=== PATIENT | female | born 1980 | race Caucasian/White ===

== ENCOUNTER 2020-05-27 14:04 | Outpatient (CLI) | payer OTHER, SELFPAY ==
--- NOTE | ~2020-05-27 | MMUS_ITS ---
EXAMINATION: MM diagnostic joe BI w kecia, US breast RT limited HISTORY: Palpable right axillary abnormality TECHNIQUE: Additional 3-D tomosynthesis images of the breasts were performed and synthetic 2-D images were generated. CAD analysis was submitted and interpreted. High resolution Limited right breast ult rasound was performed. COMPARISON: Comparison to multiple prior studies sequentially, with oldest reviewed study dated 08/29. BREAST PARENCHYMAL COMPOSITION: Breast composed of scattered areas of fibroglandular density FINDINGS: MAMMOGRAPHIC FINDINGS: There are no suspicious masses, calcifications or architectural distortion to suggest malignancy. ULTRASOUND: Limited right axillary ultrasound: In the area of palpable concern there is a 6 mm lymph node. No oth er discrete mass identified. IMPRESSION: 1. No evidence for malignancy in either breast. Benign lymph node corresponds to the area of palpable concern in the right axilla. 2. Routine yearly screening mammogram and regular clinical breast examination are recommended. BI-RADS Category 2: Benign finding(s). Reviewed, dictated and finalized at location A. ULAR CLERK IMPRESSION: 1. No evidence for malignancy in either breast. Benign lymph node corresponds t o the area of palpable concern in the right axilla. 2. Routine yearly screening mammogram and regular clinical breast examination a re recommended. BI-RADS Category 2: Benign finding(s).
== END 2020-05-27 14:05 | disposition home or self-care (01) ==
LOC: ANHIMG 14:06
PROVIDERS: PCP Family Medicine; Visit Provider Advanced Practice Midwife
DX: N63.0 Unspecified lump in unspecified breast (principal)
CPT/HCPCS: 76642; 77062; 77066; G0279

== ENCOUNTER → 2022-05-13 09:21 | Outpatient (CLI) | payer OTHER, SELFPAY ==
--- NOTE | ~2022-05-13 | XR_ITS ---
EXAM: XR knee LT 3V DATE: 05/13/2022 09:40 HISTORY: M25.562 - Pain in left knee . COMPARISON: None available. FINDINGS: Normal mineralization. No fracture or dislocation. No lytic or blastic lesion. Joint space s are maintained. No erosion or periosteal change. Soft tissues within normal limits. IMPRESSION: No acute osseous finding in the left knee. Reviewed, dictated and finalized at location K. CURER
== END ==
PROVIDERS: PCP Family Medicine; Visit Provider Family Medicine
DX: M25.562 Pain in left knee (principal)
CPT/HCPCS: 73562

== ENCOUNTER → 2022-06-03 15:06 | Outpatient (CLI) | payer OTHER, SELFPAY ==
--- NOTE | ~2022-06-03 | MM_ITS ---
EXAMINATION: MM screening joe BI w kecia HISTORY: Screening TECHNIQUE: Craniocaudal and mediolateral oblique 3-D tomosynthesis images were obtained and synthetic 2-D images were generated. CAD analysis was submitted and interpreted. COMPARISON: Comparison to multiple prior studies sequentially, with oldest reviewed study dated 10/04. BREAST PARENCHYMAL COMPOSITION: There are scattered areas of fibroglandular density. FINDINGS: There is no evidence of suspicious mass, calcification, or architectural distortion to sugg est malignancy in either breast. There has been no suspicious interval change. IMPRESSION: 1. No mammographic evidence of malignancy. 2. Recommend routine screening mammography in one year. BI-RADS Category 1: Negative Reviewed, dictated and finalized at location B. US DEAN
== END ==
PROVIDERS: PCP Family Medicine; Visit Provider Nurse Practitioner Obstetrics & Gynecology
DX: Z12.31 Encounter for screening mammogram for malignant neoplasm of breast (principal)
CPT/HCPCS: 77063; 77067

== ENCOUNTER 2022-08-06 09:07 | Outpatient (CLI) | payer OTHER, SELFPAY ==
--- NOTE | 2022-08-22 23:01 | WPDHOMESLEEP ---
Sleep Study - Home Unattended Date of Study: 08/06/22 Ordering Provider: Dimas Kaur PA-C Interpreting Provider: Rosanna Calle, DO Home Sleep Study Type: Watch PAT Height: 1.78 m Weight: 117.934 kg Body Mass Index: 37.3 Neck Circumference (inches): 15 [place]: 16 Reason for Sleep Study Unrefreshing sleep, snoring Sleep History The patient is a 42-year-old female with hyperlipidemia and seasonal allergies that had a sleep study ordered for evaluation of sleep apnea. The patient occasionally awakens from sleep short of breath. She denies awakening at night with heartburn, belching or cough. She constantly snores loudly enough that others complain. She frequently has trouble sleeping when she has a cold. She frequently wakes up gasping for air throughout the night. She frequently has breathing problems at night observed by herself or others. She denies sweating excessively at night. She denies having heart palpitations or irregular heartbeats during the night. She occasionally falls asleep during the day and occasionally falls asleep while driving. She denies sleep paralysis, cataplexy and hypnagogic / hypnopompic hallucinations. He rarely has trouble at school or work due to sleepiness. She denies feeling afraid of going to sleep. She denies having nightmares. She rarely remembers her dreams. She occasionally has thoughts racing through her mind. She rarely feels sad or depressed. She frequently has anxiety. She denies having muscular tension. She rarely notices parts of her body jerk. She occasionally kicks during the night. She denies having crawling and aching feelings in her legs. She rarely experiences leg pain during the night. She denies grinding her teeth during sleep and denies awakening with morning jaw pain. She denies being bothered by pain during the day and denies being awakened by pain during the night. She rarely wakes up feeling stiff in the morning. She rarely wakes up with sore or achy muscles. She rarely wakes up with pain in the neck, spine or other joints. The patient goes to bed at 8:30 p.m. on weekdays and at 9:30 p.m. on the weekends. It takes her 20 minutes to fall asleep. He wakes up 2-3 times throughout the night for unknown reasons. When she awakens, she will check her phone or stare at something. It takes her 1-2 hours to fall back asleep. She wakes up at 5:00 a.m. on weekdays and between 6-7 a.m. on the weekends. she typically gets 9 hours of sleep per night. She will stay in bed for 30 minutes after waking up in the morning. She currently lives with her and 3 children. She does not consume any caffeinated beverages within 2 hours of bedtime. She does not engage in physical exercise before bedtime. She will read and watch television before falling asleep. He will take naps in the afternoon or the evening but they are not refreshing. She drinks 2-3 cups of caffeinated beverage per day. She denies tobacco, alcohol and recreational drug use. [facility] Past Medical History Medical History Grief reaction with prolonged bereavement Surgical History Surgical History S/P laparoscopic sleeve gastrectomy Family History Family History Father Family history of elevated blood lipids Mother Patient's mother is , Onset Age: 58 Other Diabetes mellitus Family history of arthritis Family history of hypercholesterolemia Family history of obesity Family history of skin conditions Hypertension Social History Social History Smoking status: Never smoker Alcohol intake: current Lack of Transportation: No Lack of Food: Never True Current Housing: I Have Housing Concerned About Future Housing: No Difficulty Paying
[2022-08-22 23:11] VITALS: BMI 37.3
== END 2022-08-07 09:13 | disposition home or self-care (01) ==
LOC: ANHCSM 09:09
PROVIDERS: PCP Family Medicine; Visit Provider Physician Assistant
DX: G47.33 Obstructive sleep apnea (adult) (pediatric) (principal); G47.30 Sleep apnea, unspecified
CPT/HCPCS: 95800

== ENCOUNTER 2022-08-28 08:22 | Outpatient (CLI) | payer OTHER, SELFPAY ==
--- NOTE | 2022-08-28 08:26 | EST_ITS ---
Patient Info Name: Hailey Marin Age: 42 years : 1980 Gender: Female Ht: 70 in Wt: 260 lbs BSA: 2.46 m2 HR: 86 bpm BP: 122 / 67 mmHg Heart Rhythm: Sinus Rhythm Exam Date: 08/28/2022 8:36 AM Exam Location: [facility] Stress Patient Status: Outpatient Admit Date: 08/28/2022 Staff Ordering Physician: Harrison Lechuga DO Attending Provider: Harrison Lechuga DO Exercise Technologist: Isabella Suarez CT Exercise Physician: Harrison Lechuga DO Exam Type: CA stress test treadmill Study Info Indications R06.09 - Other forms of dyspnea A treadmill exercise stress test was performed. Summary 1. 1. Negative Vincent exercise stress test for ischemic ST changes by ECG criteria. 2. 2. Reduced functional capacity, achieving 8 METs of workload. 3. 3. Appropriate HR response to exercise. 4. 4. Appropriate HR recovery at 1 minute post exercise. 5. 5. No imaging with stress testing. 6. 6. Patient informed of the above results. Protocol: Vincent Stress ECG Details Stage: REST Duration (min): 3 min : 57 sec Speed (mph): 0.0 Grade (%): 0 HR (bpm): 87 SBP (mmHg): 122 DBP (mmHg): 67 METS: --- Stage: REST Duration (min): 4 min : 26 sec Speed (mph): 0.0 Grade (%): 0 HR (bpm): 92 SBP (mmHg): 122 DBP (mmHg): 67 METS: --- Stage: STAGE 1 Duration (min): 1 min : 0 sec Speed (mph): 1.7 Grade (%): 10 HR (bpm): 121 SBP (mmHg): 122 DBP (mmHg): 67 METS: --- Stage: STAGE 1 Duration (min): 2 min : 0 sec Speed (mph): 1.7 Grade (%): 10 HR (bpm): 132 SBP (mmHg): 122 DBP (mmHg): 67 METS: --- Stage: STAGE 1 Duration (min): 3 min : 0 sec Speed (mph): 1.7 Grade (%): 10 HR (bpm): 129 SBP (mmHg): 122 DBP (mmHg): 67 METS: --- Stage: STAGE 2 Duration (min): 1 min : 0 sec Speed (mph): 2.5 Grade (%): 12 HR (bpm): 140 SBP (mmHg): 163 DBP (mmHg): 96 METS: --- Stage: STAGE 2 Duration (min): 2 min : 0 sec Speed (mph): 2.5 Grade (%): 12 HR (bpm): 147 SBP (mmHg): 163 DBP (mmHg): 96 METS: --- Stage: STAGE 2 Duration (min): 3 min : 0 sec Speed (mph): 2.5 Grade (%): 12 HR (bpm): 152 SBP (mmHg): 163 DBP (mmHg): 96 METS: --- Stage: STAGE 3 Duration (min): 0 min : 41 sec Speed (mph): 3.4 Grade (%): 14 HR (bpm): 162 SBP (mmHg): 148 DBP (mmHg): 51 METS: --- Stage: RECOVERY Duration (min): 0 min : 18 sec Speed (mph): 0.0 Grade (%): 0 HR (bpm): 159 SBP (mmHg): 148 DBP (mmHg): 51 METS: --- Stage: RECOVERY Duration (min): 1 min : 18 sec Speed (mph): 0.0 Grade (%): 0 HR (bpm): 127 SBP (mmHg): 148 DBP (mmHg): 51 METS: --- Stage: RECOVERY Duration (min): 2 min : 6 sec Speed (mph): 0.0 Grade (%): 0 HR (bpm): 117 SBP (mmHg): 152 DBP (mmHg): 57 METS: --- Rest HR: 92 bpm Peak
--- NOTE | 2022-08-28 08:27 | ECHO_ITS ---
Patient Info Name: Hailey Marin Age: 42 years : 1980 Gender: Female Ht: 70 in Wt: 260 lbs BSA: 2.46 m2 HR: 89 bpm BP: 100 / 87 mmHg Technical Quality: Fair Exam Date: 08/28/2022 9:04 AM Exam Location: [facility] Patient Status: Outpatient Admit Date: 08/28/2022 Staff Ordering Physician: Harrison Lechuga DO Recreation Instructor: Julieta Weathers RDCS Attending Provider: Harrison Lechuga DO Referring Physician: Ankush SMITH; Exam Type: CA echo doppler color flow Study Info Indications R06.09 - Other forms of dyspnea Complete two-dimensional, color flow and Doppler transthoracic echocardiogram is performed. Summary 1. Complete two-dimensional, color flow and Doppler transthoracic echocardiogram is performed. 2. Left ventricular chamber dimension is normal. 3. Left ventricular systolic function is normal, estimated at 65-70%. 4. The left ventricular diastolic function is grade II diastolic dysfunction. 5. E/e' 9 is minimally elevated. 6. Global longitudinal strain is abnormal at -15.1%. Left Ventricle E/e' 9 is minimally elevated. Global longitudinal strain is abnormal at -15.1%. Left ventricular chamber dimension is normal. Left ventricular systolic function is normal, estimated at 65-70%. The left ventricular diastolic function is grade II diastolic dysfunction. Right Ventricle Right ventricular systolic function is normal and with normal TAPSE 1.7 cm. Right ventricular chamber dimension is normal. Left Atria Left atrial chamber dimension is normal. Right Atria Right atrial chamber dimension is normal. Aortic Valve The aortic valve is trileaflet. There is no aortic valve stenosis. There is no aortic valve regurgitation. Pulmonic Valve There is no pulmonic regurgitation. Mitral Valve There is no mitral valve stenosis. There is no mitral valve regurgitation. Tricuspid Valve There is no tricuspid valve regurgitation. Pericardium/Pleural There is no pericardial effusion. Inferior Vena Cava Normal inferior vena cava with >50% collapse upon inspiration consistent with normal right atrial pressure, 5 mmHg. Aorta The aortic root size at the sinus of Valsalva is normal. Left Ventricular Outflow Tract Name Value Normal LVOT 2D LVOT Diameter 1.9 cm LVOT Doppler LVOT Peak Gradient 5 mmHg LVOT Mean Gradient 3 mmHg LVOT VTI 22 cm LVOT VTI/AV VTI Ratio 0.8 LVOT Stroke Volume 60 ml LVOT CO 5.1 l/min LVOT CI 2.1 l/min/m2 Pulmonic Valve Name Value Normal RVOT Doppler RVOT Peak Gradient 3 mmHg PV Doppler PV Peak
== END 2022-08-28 08:23 | disposition home or self-care (01) ==
PROVIDERS: PCP Family Medicine; Visit Provider Internal Medicine Cardiovascular Disease
DX: R06.09 Other forms of dyspnea (principal)
CPT/HCPCS: 93017; 93306

== ENCOUNTER → 2023-07-05 15:13 | Outpatient (CLI) | payer OTHER, SELFPAY ==
--- NOTE | ~2023-07-05 | MM_ITS ---
EXAMINATION: MM screening joe BI w kecia HISTORY: Screening TECHNIQUE: Craniocaudal and mediolateral oblique 3-D tomosynthesis images were obtained and synthetic 2-D images were generated. CAD analysis was submitted and interpreted. COMPARISON: Comparison to multiple prior studies sequentially, with oldest reviewed study dated 03/22. BREAST PARENCHYMAL COMPOSITION: Breast composed of scattered areas of fibroglandular density FINDINGS: There is a small focal asymmetry centrally in the left breast posterior aspect on the CC vi ew. The right breast is stable without evidence for malignancy. IMPRESSION: 1. Focal asymmetry posterior central aspect of the left breast on CC view. 2. Additional mammographic views and possible breast ultrasound are recommended. BI-RADS Category 0: Incomplete: Needs additional imaging evaluation. Reviewed, dictated and finalized at location A. COVER INSPECTOR IMPRESSION: 1. Focal asymmetry posterior central aspect of the left breast on CC view. 2. Additional mammographic views and possible breast ultrasound are recommended . BI-RADS Category 0: Incomplete: Needs additional imaging evaluation.
== END ==
PROVIDERS: PCP Nurse Practitioner Obstetrics & Gynecology; Visit Provider Nurse Practitioner Obstetrics & Gynecology
DX: Z12.31 Encounter for screening mammogram for malignant neoplasm of breast (principal); R92.8 Other abnormal and inconclusive findings on diagnostic imaging of breast
CPT/HCPCS: 77063; 77067

== ENCOUNTER 2023-07-06 09:16 | Outpatient (CLI) | payer OTHER, SELFPAY ==
--- NOTE | 2023-07-27 18:43 | WPDHOMESLEEP ---
Sleep Study - Home Unattended Date of Study: 07/06/23 Ordering Provider: Rosanna Calle DO Interpreting Provider: Jessi Roberson MD Home Sleep Study Type: Watch PAT Height: 1.78 m Weight: 90.718 kg Body Mass Index: 28.7 Neck Circumference (inches): 14 [place]: 11 Reason for Sleep Study Obstructive sleep apnea on PAP therapy, has lost wake, retesting * 08/06/2022- home sleep test with WatchPat, AHI 34.4, marci 89%. She has been compliant with treatment, wants to stop using PAP Sleep History Hailey Pichardo was diagnosed with severe obstructive sleep apnea on 08/06/2022 with a home sleep test showing an apnea-hypopnea index of 34.4 with desaturation 89%. Her BMI at the time was 37.3. She was prescribed auto PAP 5-15 cm and has been compliant with use. She returns at this time for re-evaluation as she does not like to use PAP therapy and wants to get off of it. The following information from her sleep questionnaire in 2022 is included here. She has hyperlipidemia and seasonal allergies. She occasionally awakens from sleep feeling short of breath. She denies awakening at night with heartburn, belching or cough. She constantly snores loudly enough that others complain. She frequently has trouble sleeping when she has a cold. She frequently wakes up gasping for air throughout the night. She frequently has breathing problems at night observed by herself or others. She denies sweating excessively at night. She denies having heart palpitations or irregular heartbeats during the night. She occasionally falls asleep during the day and occasionally falls asleep while driving. She denies sleep paralysis, cataplexy and hypnagogic / hypnopompic hallucinations. She rarely has trouble at work due to sleepiness. She denies feeling afraid of going to sleep. She denies having nightmares. She rarely remembers her dreams. She occasionally has thoughts racing through her mind. She rarely feels sad or depressed. She frequently has anxiety. She denies having muscular tension. She rarely notices parts of her body jerk. She occasionally kicks during the night. She denies having crawling and aching feelings in her legs. She rarely experiences leg pain during the night. She denies grinding her teeth during sleep and denies awakening with morning jaw pain. She denies being bothered by pain during the day and denies being awakened by pain during the night. She rarely wakes up feeling stiff in the morning. She rarely wakes up with sore or achy muscles. She rarely wakes up with pain in the neck, spine or other joints. The patient goes to bed at 8:30 p.m. on weekdays and at 9:30 p.m. on the weekends. It takes her 20 minutes to fall asleep. She wakes up 2-3 times throughout the night for unknown reasons. When she awakens, she will check her phone or stare at something. It takes her 1-2 hours to fall back asleep. She wakes up at 5:00 a.m. on weekdays and between 6-7 a.m. on the weekends. she typically gets 9 hours of sleep per night. She will stay in bed for 30 minutes after waking up in the morning. She currently lives with her and 3 children. She does not consume any caffeinated beverages within 2 hours of bedtime. She does not engage in physical exercise before bedtime. She will read and watch television before falling asleep. He will take naps in the afternoon or the evening but they are not refreshing. She drinks 2-3 cups of caffeinated beverage per day. She denies tobacco, alcohol and recreational drug use. 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 autoPAP 5-15 cm H2O, CPAP mask/filters/tubing and humidifier chamber. Synovial cyst of ankle and foot region Surgical History Surgical History (Review
[2023-07-27 18:50] VITALS: BMI 28.7
== END 2023-07-07 07:30 | disposition home or self-care (01) ==
LOC: ANHCSM 09:17
PROVIDERS: PCP Nurse Practitioner Obstetrics & Gynecology; Visit Provider Family Medicine
DX: G47.33 Obstructive sleep apnea (adult) (pediatric) (principal)
CPT/HCPCS: 95800

== ENCOUNTER → 2023-07-30 08:49 | Outpatient (CLI) | payer OTHER, SELFPAY ==
--- NOTE | ~2023-07-30 | MM_ITS ---
EXAMINATION: MM diagnostic joe LT w kecia HISTORY: Focal posterior central asymmetric density on 07/05/2023 left CC view TECHNIQUE: Additional 3-D tomosynthesis images of the left breast were performed and synthetic 2-D im ages were generated. Rolled medial and rolled lateral craniocaudal views of left breast. CAD analysis was submitted and interpreted. COMPARISON: 07/05/2023,06/03/2022, 05/27/2020bilateral screening mammogram examinations FINDINGS: The small density in the posterior central left breast appears relatively stable since 05/27 and is not apparent on the rolled medial and rolled craniocaudal views,, suggesting this may be overlapping fibroglandular stroma (summation shadow). IMPRESSION: 1. No mammographic evidence of malignancy 2. Routine annual mammographic screening is recommended BI-RADS Category 1: Negative Reviewed, dictated and finalized at location A. NCIAL REPORTING DIRECTOR
== END ==
PROVIDERS: PCP Family Medicine; Visit Provider Nurse Practitioner Obstetrics & Gynecology
DX: R92.8 Other abnormal and inconclusive findings on diagnostic imaging of breast (principal)
CPT/HCPCS: 77061; 77065; G0279

== ENCOUNTER 2024-07-12 13:40 | Outpatient (CLI) | payer OTHER, SELFPAY ==
--- NOTE | ~2024-07-12 | MR_ITS ---
EXAMINATION: MR foot LT wo con DATE: 07/12/2024 14:21 INDICATION: Left foot and heel pain. TECHNIQUE: Magnetic resonance imaging (MRI) of the left foot was performed without intravenous contra st. Sequences included sagittal T1-weighted FSE, sagittal fluid sensitive FSE STIR, coronal PD-weight ed FS FSE, coronal T1-weighted FSE, axial PD-weighted FS FSE, and axial PD-weighted FSE. COMPARISON: Foot radiographs dated 07/04/2024 FINDINGS: Bone alignment is normal. Normal bone marrow signal throughout. No fracture or pathologic marrow repl acing process. Likely mild osteoarthritis related to subarticular cystlike and edema-like changes at the cuboid underlying its articulation with the anterior calcaneus. Joint spaces are otherwise unrema rkable. No joint effusions. The medial and lateral stabilizing ligaments of the ankle appear normal. The Lisfranc ligament complex as well as the collateral ligament complex at the metatarsophalangeal a nd interphalangeal joints are normal. Visualized portion of the flexor and extensor tendons of the fo ot and ankle are normal. The intrinsic musculature of the foot is unremarkable. IMPRESSION: 1. Likely osteoarthritis related subarticular edema and cystlike changes at the cuboid along its celso culation with the anterior calcaneus. Otherwise unremarkable MRI of the left foot. Reviewed, dictated and finalized at location A. B2B SALES MANAGER IMPRESSION: 1. Likely osteoarthritis related subarticular edema and cystlike changes at the cuboid along its articulation with the anterior calcaneus. Otherwise unremarka ble MRI of the left foot.
== END 2024-07-12 13:41 | disposition home or self-care (01) ==
PROVIDERS: PCP Family Medicine; Visit Provider Orthopaedic Surgery
DX: S93.692A Other sprain of left foot, initial encounter (principal); X58.XXXA Exposure to other specified factors, initial encounter; M19.072 Primary osteoarthritis, left ankle and foot
CPT/HCPCS: 73718

== ENCOUNTER 2024-10-18 15:45 | Outpatient (CLI) | payer OTHER, SELFPAY ==
--- NOTE | ~2024-10-18 | MM_ITS ---
EXAMINATION: MM screening joe BI w kecia HISTORY: Screening TECHNIQUE: Craniocaudal and mediolateral oblique 3-D tomosynthesis images were obtained and synthetic 2-D images were generated. CAD analysis was submitted and interpreted. COMPARISON: Comparison to multiple prior studies sequentially, with oldest reviewed study dated 12/2019. BREAST PARENCHYMAL COMPOSITION: Dense: The breasts are extremely dense, which lowers the sensitivity of mammography. FINDINGS: There is no evidence of suspicious mass, calcification, or architectural distortion to sugg est malignancy in either breast. There has been no suspicious interval change. IMPRESSION: 1. No mammographic evidence of malignancy. 2. Recommend routine screening mammography in one year. BI-RADS Category 1: Negative Reviewed, dictated and finalized at location A.
== END 2024-10-18 15:46 | disposition home or self-care (01) ==
PROVIDERS: PCP Student in an Organized Health Care Education/Training Program; Visit Provider Student in an Organized Health Care Education/Training Program
DX: Z12.31 Encounter for screening mammogram for malignant neoplasm of breast (principal)
CPT/HCPCS: 77063; 77067

== ENCOUNTER 2025-04-13 12:58 | Outpatient (CLI) | payer OTHER, SELFPAY ==
--- OUTSIDE RECORDS SUMMARY | 2025-04-13 13:00 | XMS_ITS | Clinical Summary ---
Author Organization [facility] Address [address] [place] [address] Care Team Providers Care Dry Drug Worker Name Role Phone Cara Stockton MD Primary Care Provider + Allergies No known active allergies Medications atorvastatin (Lipitor) 20 mg tablet Take 20 mg by mouth daily Active norethindrone-et hinyl estradiol-iron (MICROGESTIN FE 1.5/30) 1.5 mg-30 mcg per tablet Take 1 tablet by mouth daily Active fexofenadine-pse udoephedrine (PAULY-D) 60-120 mg per 12 hr tablet Take 1 tablet by mouth 2 (two) times a day Active Active Problems Problem Noted Date Diagnosed Date Cephalalgia 07/17/2014 Migraine with aura 07/17/2014 Immunizations Immunization Administration Dates Next Due Influenza, Trivalent, Preservative Free, Intramu scular 04/16/2014 Surgical History Surgery Date Site/Laterality Comments IA TONSILLECTOMY PRIMARY/SEC ONDARY <AGE 13 Tonsillectomy - (Added by TW Conv) Medical History Medical History Date Comments Hypertension only when pregna nt Family History Medical History Relation Name Comments Diabetes Father Family history of diabetes mellitus - (Added by TW Conv) Cancer Neg Hx Relation Name Status Comments Father Social History Tobacco Use Types Packs/Day Years Used Date Smoking Tobacco: Former Smokeless Tobacco: Never Alcohol Use Standard Drinks/Week Comments Yes 0 (1 standard drink = 0.6 oz pur e alcohol) socially Personal Safety Answer Date Recorded Getting School Help Needed Not on file 09/03 Comments Unknown Sex and Gender Information Value Date Recorded Sex Assigned at Not on file Legal Sex Female 8:20 AM SHOE FOLDER Gender Identity Not on file Sexual Orientation Not on file Obstetrics History Last Filed Vital Signs Vital Sign Reading Time Taken Comments Blood Pressure 137/83 07/09/2020 3:28 PM SHOE FOLDER Pulse 74 07/09/2020 3:28 PM SHOE FOLDER Temperature 36.7 C (98.1 F) 07/09/2020 3:28 PM SHOE FOLDER Respiratory Rate 18 07/09/2020 3:28 PM SHOE FOLDER Oxygen Saturation 97% 07/09/2020 3:28 PM SHOE FOLDER Inhaled Oxygen Concentration - - Weight 118 kg (260 lb 3.2 oz) 07/09/2020 3:28 PM SHOE FOLDER Height 174 cm (5' 8.5) 07/09/2020 3:28 PM SHOE FOLDER Body Mass Index 38.98 07/09/2020 3:28 PM SHOE FOLDER Plan of Treatment Not on file Insurance [facility] CHO[facility] PL[facility] Care Teams Dry Drug Worker Relationship Specialty Start Date End Date Cara Stockton MD PCP - General Family Medicine 06/25/20
--- OUTSIDE RECORDS SUMMARY | 2025-04-13 13:00 | XMS_ITS | Clinical Summary ---
Author Organization [facility] [place] Address [address] [place] [address] Phone Care Team Providers Care Construction Job Cost Estimator Name Role Phone Cara Stockton MD Primary Care Provider Allergies No known active allergies Medications atorvastatin (LIPITOR) 20 mg tablet Take 40 mg by mouth daily. Active cetirizine (ZyrTEC) 10 mg tablet Take 10 mg by mouth daily. Active acetaminophen 325 mg tablet Take 650 mg by mouth every 4 hours as needed for Pain. Active HYDROcodone-acet aminophen (HYCET) 7.5-325 mg/15 mL SolutionIndicati ons:High cholesterol Take 15 mL by mouth every 6 hours as needed for severe pain. Max Daily Amount: 60 mL 300 mL 10/06/2022 12:42 PM CDT 3 Active ondansetron (ZOFRAN ODT) 4 mg Tablet, Rapid Dissolve Take 1 Tablet (4 mg) by mouth every 6 hours as needed for Nausea/Emesis . Dissolve tablet on top of tongue, then swallow with saliva. 28 Tablet 10/06/2022 12:42 PM CDT 3 Active Active Problems Patient Care Coordination No te Formatting of this note migh t be different from the original. Primary Care: Cara Stockton MD Referring Provider: Ciara Acosta MD [address] [place] [address] Problem Noted Date Diagnosed Date Metabolic acidosis, normal anion gap (NAG) 10/06 High cholesterol 08/29/2010 Diffuse cystic mastopathy 05/28/2009 Asthma Immunizations Immunization Administration Dates Next Due Influenza Seasonal Unspecified Formulation PF IM 04/16/2014 Family History Medical History Relation Name Comments Healthy Father Healthy Mother Heart Disease Paternal Grandfather Other Paternal Grandfather diabete s Breast Cancer Paternal Grandmother late 3 0s early 40s Healthy Sister Ovarian Cancer Neg Hx Relation Name Status Comments Father Mother Paternal Grandfather Paternal Grandmother Sister Social History Tobacco Use Types Packs/Day Years Used Date Smoking Tobacco: Never Smokeless Tobacco: Never Alcohol Use Standard Drinks/Week Comments Not Currently 0 (1 standard drink = 0.6 oz pur e alcohol) moderate Feeling Safe Answer Date Recorded Are you in a relationship wi th someone who hurts you emotionally and/or physically? 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 Gender Identity Not on file Sexual Orientation Not on file Occupation Industry Job Start Date Job End Date Not on file Not on file Not on file Not on file Last Filed Vital Signs Vital Sign Reading Time Taken Comments Blood Pressure 143/74 10/06/2022 12:12 PM CDT Pulse 64 10/06/2022 12:12 PM CDT Temperature 36.5 C (97.7 F) 10/06/2022 12:12 PM CDT Respiratory Rate 16 10/06/2022 12:12 PM CDT Oxygen Saturation 100% 10/06/2022 12:12 PM CDT Inhaled Oxygen Concentration - - Weight 126.3 kg (278 lb 8 oz) 10/05/2022 4:48 PM CDT Height 177.8 cm (5' 10) 10/05/2022 4:48 PM CDT Body Mass Index 39.96 10/05/2022 4:48 PM CDT Plan of Treatment Health Maintenance Due Date Last Done Comments DTAP/TDAP/TD VACCINES (1 - Tdap) 2000 HEPATITIS B VACCINES (1 of 3 - 19+ 3-dose series) 2000 HPV/Cotest (21-29) 2002 HPV VACCINES (1 - 3-dose SCD M series) 2008 HPV/Cotest (30-65) 2011 BREAST CANCER SCREENING 2021 04/10/20 14, 10/04/2013, 08/29/2010, Additional history exists INFLUENZA VACCINE (#1) 2025 04/16/2014 CERVICAL CANCER SCREENING 03/05/2025 PAP SMEAR 03/05/2025 03/05/2022 Medical Devices Implanted Type Area Circulation Sales Representative Device Identifier Shelf Expiration Date Model / Serial / Lot Seamguard Endogia 60 Blk [id number] - [id number] Implanted:Qt y: 1 on 10/05/2022 by Ephraim Padron MD at [facility] Biological N/A: Stomach [employer] [id number] 04/05/2024 12BSGTRI 60B / / [id number] Seamguard Endogia 60 Blk [id number] - [id number] Implanted:Qt y: 1 on 10/05/2022 by Ephraim Padron MD at [facility] Biological N/A: Stomach [employer] [id number] 04/05/2024 12BSGTRI 60B / / [id number] Seamguard Endogia 60 Prpl [id number] - [id number] Implanted:Qt y: 1 on 10/05/2022 by Ephraim Padron MD at [facility] Biological N/A: Stomach [employer] [id number] 01/18/2025 12BSGTRI 60P / / [id number] Seamguard Endogia 60 Prpl [id number] - [id number] Implanted:Qt y: 1 on 10/05/2022 by Ephraim Padron MD at [facility] N/A: Stomach [employer] [id number] 01/18/2025 12BSGTRI 60P / / [id number] Procedures Procedure Name Priority Date/Time Associated Diagnosis Comments MAMMO 3D ADAM DIAGNOSTIC BILAT W OR WO CAD Routine 04/10/2014 1:09 PM CDT Diffuse cystic mastopathy, unspecified laterality from Last 3 Months or Most Recently Relevant to Health Maintenance Results * MAMMO DIG DIAG BILAT W 3D ADAM (04/10/2014 1:09 PM CDT) Anatomical Region Laterality Modality Breast Bilateral Mammography 04/10/2014 1:08 PM CDT Narrative 04/13/2014 9:06 AM CDT BILATERAL DIAGNOSTIC FULL FIELD DIGITAL MAMMOGRAPHY WITH CAD WITH 3D TOMOSYNTHESIS AND BILATERAL BREAST ULTRASOUND DATE: 04/10/14 HISTORY: Tenderness TECHNIQUE: Diagnostic mammograms of both breasts were performed using full field digital mammography. Low Dose full field Digital Breast tomosynthesis examination was performed with 2D and 3D acquisitions. Examination is read in conjunction with computer aided detection. Comparison is made with prior studies dated September 2013, October 2008August 2010 BREAST COMPOSITION: Scattered fibroglandular densities. FINDINGS: No dominant masses, suspicious calcifications, parenchymal asymmetry or areas of architectural distortion are identified in either breast. Since the prior study, there has been no significant change. The computer aided detection system was utilized. A bilateral breast ultrasound was performed. In the upper-outer quadrant of the right breast no solid or cystic lesions are identified. Scanning throughout the right breast reveals no solid or cystic lesions. Attention to the upper-outer quadrant of the left breast was performed. This reveals no solid or cystic lesions. Scanning of the entire left breast reveals no solid or cystic lesions. Overall assessment: BI-RADS category 1. Negative. Recommendation: Annual mammography is recommended. Dictated from [facility] Procedure Note Bre Hurt MD - 04/13/2014 BILATERAL DIAGNOSTIC FULL FIELD DIGITAL MAMMOGRAPHY WITH CAD WITH 3D TOMOSYNTHESIS AND BILATERAL BREAST ULTRASOUND DATE: 04/10/14 HISTORY: Tenderness TECHNIQUE: Diagnostic mammograms of both breasts were performed using full field digital mammography. Low Dose full field Digital Breast tomosynthesis examination was performed with 2D and 3D acquisitions. Examination is read in conjunction with computer aided detection. Comparison is made with prior studies dated September 2013, October 2008August 2010 BREAST COMPOSITION: Scattered fibroglandular densities. FINDINGS: No dominant masses, suspicious calcifications, parenchymal asymmetry or areas of architectural distortion are identified in either breast. Since the prior study, there has been no significant change. The computer aided detection system was utilized. A bilateral breast ultrasound was performed. In the upper-outer quadrant of the right breast no solid or cystic lesions are identified. Scanning throughout the right breast reveals no solid or cystic lesions. Attention to the upper-outer quadrant of the left breast was performed. This reveals no solid or cystic lesions. Scanning of the entire left breast reveals no solid or cystic lesions. Overall assessment: BI-RADS category 1. Negative. Recommendation: Annual mammography is recommended. [facility]ict[facility] from [facility] Provider Result Type Result Stat Mary Conrad MD MAMMO ORDERABLES Final Result from Last 3 Months or Most Recently Relevant to Health Maintenance Insurance [employer] [id number] [employer] Advance Directives For more information, please contact: [phone] * Full Code (Latest Code Status on File) Date Activated Date Inactivated Comments 10/05/2022 11:14 AM 10/06/2022 4:21 PM * Full Code Date Activated Date Inactivated Comments 10/05/2022 10:54 AM 10/05/2022 11:14 AM Care Teams Construction Job Cost Estimator Relationship Specialty Start Date End Date Cara Stockton MD PCP - General Family Practice 04/10/14
--- OUTSIDE RECORDS SUMMARY | 2025-04-13 13:00 | XMS_ITS | Clinical Summary ---
Author Organization [facility] Address [address] [place] [id number] Care Team Providers Care Preventive Medicine Physician Name Role Phone Unavailable Primary Care Provider Unavailabl e Social History Tobacco Use Types Packs/Day Years Used Date Smoking Tobacco: Never Assessed Comments Unknown Sex and Gender Information Value Date Recorded Sex Assigned at Not on file Legal Sex Female 7:53 PM CDT Gender Identity Not on file Sexual Orientation Not on file Plan of Treatment Health Maintenance Due Date Last Done Comments Cervical Cancer Screening Pa p Smear (Age 30 to 64) Every 3 Years 1981 Annual Physical 1984 Hepatitis C 1999 DTaP, Tdap and Td Vaccines ( 1 - Tdap) 2000 Hepatitis B Vaccines (1 of 3 - 19+ 3-dose series) 2000 HPV Vaccines (1 - 3-dose SCD M series) 2008 Cervical Cancer Screening Pa p with HPV Testing (Age 30 to 64) Every 5 Years 2011 Cervical Cancer Screening with HPV 2011 Mammogram Screening 2021 COVID-19 Vaccine (2024-2 6 season) 2025 Influenza Adult (#1) 2025 Hepatitis A Vaccines Aged Out No long er eligible based on patient's age to complete this topic Meningococcal B Vaccine Aged Out No l onger eligible based on patient's age to complete this topic Meningococcal Vaccine Aged Out No barbara ady eligible based on patient's age to complete this topic Pneumococcal Vaccine: Pediat rics (0 to 5 Years) and At-Risk Patients (6 to 49 Years) Aged Out No longer eligible b ased on patient's age to complete this topic RSV Immunizations Under 20 Months Aged Out No longer eligible based on patient's age to complete this topic
[2025-04-13 18:46] LABS: Thyroid Stimulating Hormone 1.410 uIU/mL (0.465-4.680)
== END 2025-04-13 12:59 | disposition home or self-care (01) ==
LOC: ANHGOSHLAB 12:59
PROVIDERS: PCP Family Medicine; Visit Provider Family Medicine
DX: R00.2 Palpitations (principal); Z98.84 Bariatric surgery status
CPT/HCPCS: 36415; 82306; 84443

== ENCOUNTER 2025-05-15 17:38 | Outpatient (CLI) | payer OTHER, SELFPAY ==
--- OUTSIDE RECORDS SUMMARY | 2025-05-15 17:41 | XMS_ITS | Clinical Summary ---
Author Organization [facility] Address [address] [place] [address] Care Team Providers Care Client Service Manager Name Role Phone Cara Stockton MD Primary [...] 04/16/2014 Surgical History Surgery Date Site/Laterality Comments [place] TONSILLECTOMY PRIMARY/SEC ONDARY <AGE 12 Tonsillectomy - [...] on file Legal Sex Female 8:20 AM MANAGER CARDIOLOGY Gender Identity Not on file Sexual Orientation Not on file Last Filed Vital Signs Vital Sign Reading Time Taken Comments Blood Pressure 137/83 07/09/2020 3:28 PM MANAGER CARDIOLOGY Pulse 74 07/09/2020 3:28 PM MANAGER CARDIOLOGY Temperature 36.7 C (98.1 F) 07/09/2020 3:28 PM MANAGER CARDIOLOGY Respiratory Rate 18 07/09/2020 3:28 PM MANAGER CARDIOLOGY Oxygen Saturation 97% 07/09/2020 3:28 PM MANAGER CARDIOLOGY Inhaled Oxygen Concentration - - Weight 118 kg (260 lb 3.2 oz) 07/09/2020 3:28 PM MANAGER CARDIOLOGY Height 174 cm (5' 8.5) 07/09/2020 3:28 PM MANAGER CARDIOLOGY Body Mass Index 38.98 07/09/2020 3:28 PM MANAGER CARDIOLOGY Plan of Treatment Not on file Insurance [facility] H[facility]/PPO Address: [address] [address] Care Teams Client Service Manager Relationship Specialty Start Date End Date Cara Stockton MD PCP - General Family Medicine 06/25/20
--- OUTSIDE RECORDS SUMMARY | 2025-05-15 17:41 | XMS_ITS | Clinical Summary ---
Author Organization [facility] Address [address] [place] [address] Care Team Providers Care Survey Coordinator Name Role Phone Unavailable Primary Care Provider [...]
--- OUTSIDE RECORDS SUMMARY | 2025-05-15 17:41 | XMS_ITS | Data Portability ---
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 Patient will come back in a year unless there are new symptoms. Not available 02/19/2021 17:00:03 03/05/2022 03/05/2022 Annual gynecological exam performed. Patient will come back in a year unless there are new symptoms. Not available 03/05/2022 16:40:19 05/11/2023 05/11/2023 Annual gynecological exam performed. Patient will come back in a year unless there are new symptoms. Not available 05/11/2023 16:48:22 05/17/2024 05/17/2024 Annual gynecological exam performed. Patient will come back in a year unless there are new symptoms. [email or web address] Not available 05/17/2024 09:24:52 Plan of Treatment Reminders Order Date Submit Date Provider Last Modified By Organization Details Last Modified Time Details Appointments [facility] 2024 03:15P M ELIECER SUN NP Not available Not available Not available Lab pap, IG + HR HPV - HPV regardles s but if HPV is positive need subtyping 16,18/45 2023 024 [facility] (Lab), [address], [place], [address], 05/29/2024 14:59:59 Referral None recorded. Procedures None recorded. Surgeries None recorded. Imaging MAMMO, screening , digital, bilateral 2023 024 [facility], [address], [place], [address], 10/18/2024 18:38:33 MAMMO, screening , bilateral 2022 023 [facility], [address], [place], [address], 07/05/2023 18:46:06 US, breast, unilatera l - May perform US unilatera lly or bilateral ly if needed [address], [address], [facility] [address], [place], [address], 12/14/2023 16:05:58 MAMMO, screening , bilateral - Please provide additiona l imaging if necessary with Hx of fibrocyst ic breasts 2021 022 [facility], [address], [place], [address], 06/03/2022 19:20:42 Medication Orders Lo Loestrin Fe 1 mg-10 mcg (24)/10 mcg (2) tablet 2021 022 [facility], [address] [place] [address], [place], [address], 05/11/2023 16:54:07 Lo Loestrin Fe 1 mg-10 mcg (24)/10 mcg (2) tablet 2020 021 [facility], [address] [place] [address], [address], 05/11/2023 16:54:07 Patient TargetsNo targets recorded. Patient Instructions Encounter Date Encounter Id Patient Instructions Last Modified By Organization Details Last Modified Time 05/03/2020 [id number] imaging ordered, f/u pendning results Not available 05/03/2020 16:08:35 Reason for Referral None Reported. Results Created Date Observation Date Name Description Value Unit Range Abnormal Flag Note LastModifiedBy Organization Detail LastModifiedTime 03/05/20 22 03/05/2022 IMAGE GUIDE D PAP AND HPV REGAR DLESS image guided Pap, HPV regardless of Pap result SEE RESULT S BELOW CASE REPOR T: Cytol ogy Gynec ologi stephanie Repor t Case: [id number] Autho adarsh tan Provi joan: Genoveva mart , Trent Olmos cted: 03/05 1650 CHEMICAL PROCESSOR Order ing Locat ion: [place] Patho log[facility] Recei fredis: 03/06 0748 First Scree n: Radha Downey een: Isai bejarano, Ismael conti, CT Speci men: Scree brittany Pap - Image d, Cervi x STATE MENT OF ADEQU ACY: Satis facto ry for evalu ation Trans forma tion zone compo nent absen t The absen ce of an endoc ervic al compo nent was confi rmed by an addit ional zeenat ner. FINAL DIAGN OSIS: Negat heidy for Intra epith elial Lesalison n or Hilda sanchez (NIL) . Guzman weldon d by Isai bejarano, Ismael conti, CT on 2021 at 8:40 PM ----- ----- ----- ----- ----- ----- ----- ----- ----- ----- ----- ----- ----- ----- ----- ----- ----- ---- HPV RESUL TS: HPV mRNA E6/E7 : No HPV mRNA Detec francisca NOTE: This high risk HPV mRNA assay detec ts fourt een high- risk HPV types (16, 18, 31, 33, 35, 39, 45, 51, 52, 56, 58, 59, 66, 68) witho ut diffe renti ation . COMME NT: Note: This speci men was revie wed by a Cytot echno logis t and/o r Patho logis t (as indic ated in this repor t) after evalu ation using the Thinp rep Imagi ng Syste m. CLINI STEPHANIE INFOR MATIO N: Menst rual Statu s: LMP (if appli cable ): Clini stephanie Histo ry/Pr eviou s Pap: Type of Neopl lula (if appli cable ): Signi fican t Clini stephanie Findi ngs: Other Histo ry: Hormo meagan (if appli cable ): PAP EDUCA DANIEL L NOTE: The Pap Test is a scree brittany test with an inher ent false negat heidy rate. Liqui d-bas ed sampl ing may decre ase, but will not elimi alvaro, false negat heidy resul ts. A negat heidy resul t does not precl ude the prese nce and/o r devel opmen t of disea se, since the prese nce of abnor mal cells in the sampl e depen ds on the locat ion of the lesio n and sampl ing techn ique. Flora nued regul ar scree brittany is the best metho d of cance r preve ntion . If repor francisca cytol ogic findi ng do not corre late with physi stephanie and/o r histo rical findi ngs, furth er inves tigat ion is recom arpit d, as clini марина davis nted. Not Available [facility] [address] [place], [address], 03/11/2022 21:42:56 05/11/20 23 05/11/2023 IMAGE GUIDE D PAP AND HPV REGAR DLESS image guided Pap, HPV regardless of Pap result SEE RESULT S BELOW CASE REPOR T: Cytol ogy Gynec ologi stephanie Repor t Case: [id number] Autho adarsh tan Provi joan: Kwasi Zayas Colle cted: 05/11 1724 CHEMICAL PROCESSOR Order ing Locat ion: [place] Patho logy Recei fredis: 05/12 0717 First Scree n: Charo Teague ica Speci men: Scree brittany Pap - Image d, Cervi x STATE MENT OF ADEQU ACY: Satis facto ry for evalu ation Trans forma tion zone compo nent prese nt FINAL DIAGN OSIS: Negat heidy for Intra epith elial Lesio n or Hilda sanchez (NIL) . Elect klaus garber fatemeh d by Charo Teague ica on 05/17 at 11:31 AM ----- ----- ----- ----- ----- ----- ----- ----- ----- ----- ----- ----- ----- ----- ----- ----- ----- ---- HPV RESUL TS: HPV mRNA E6/E7 : No HPV mRNA Detec francisca NOTE: This high risk HPV mRNA assay detec ts fourt een high- risk HPV types (16, 18, 31, 33, 35, 39, 45, 51, 52, 56, 58, 59, 66, 68) witho ut diffe renti ation . COMME NT: This speci men was revie wed by a Cytot echno logis t and/o r Patho logis t (as indic ated in this repor t) after evalu ation using the Thinp rep Imagi ng Syste m. CLINI STEPHANIE INFOR MATIO N: Menst rual Statu s: LMP (if appli cable ): Clini stephanie Histo ry/Pr eviou s Pap: Type of Neopl lula (if appli cable ): Signi fican t Clini stephanie Findi ngs: Other Histo ry: Hormo meagan (if appli cable ): PAP EDUCA DANIEL L NOTE: The Pap Test is a scree brittany test with an inher ent false negat heidy rate. Liqui d-bas ed sampl ing may decre ase, but will not elimi alvaro, false negat heidy resul ts. A negat heidy resul t does not precl ude the prese nce and/o r devel opmen t of disea se, since the prese nce of abnor mal cells in the sampl e depen ds on the locat ion of the lesio n and sampl ing techn ique. Flora nued regul ar scree brittany is the best metho d of cance r preve ntion . If repor francisca cytol ogic findi ng do not corre late with physi stephanie and/o r histo rical findi ngs, furth er inves tigat ion is recom arpit d, as clini марина davis nted. Not Available [facility] (Lab) [address] [facility], [place], [address], 05/17/2023 12:35:47 05/17/20 24 05/17/2024 IMAGE GUIDE D PAP AND HPV REGAR DLESS image guided Pap, HPV regardless of Pap result SEE RESULT S BELOW CASE REPOR T: Cytol ogy Gynec ologi stephanie Repor t Case: [id number] Autho adarsh tan Provi joan: Dermo dy, Eliecer , ANP, MID LEVEL PROJECT MANAGER Colle cted: 05/17 1047 Order ing Locat ion: [place] Patho logy Recei fredis: 05/18 0222 First Scree n: Martha Read ret, CT Speci men: Zeenat soto Pap - Image d, Cervi x STATE MENT OF ADEQU ACY: Satis facto ry for evalu ation Trans forma tion zone compo nent prese nt ----- ----- ----- ----- ----- ----- ----- ----- ----- ----- ----- ----- ----- ----- ----- ----- ----- ---- FINAL DIAGN OSIS: Negat heidy for Intra epith elial Lesio n or Hilda sanchez (NIL) . Guzman weldon d by Martha Read ret, CT on 2023 at 1:55 PM ----- ----- ----- ----- ----- ----- ----- ----- ----- ----- ----- ----- ----- ----- ----- ----- ----- ---- HPV RESUL TS: HPV mRNA E6/E7 : No HPV mRNA Detec francisca NOTE: This high risk HPV mRNA assay detec ts fourt een high- risk HPV types (16, 18, 31, 33, 35, 39, 45, 51, 52, 56, 58, 59, 66, 68) witho ut diffe renti ation . COMME NT: This speci men was revie wed by a Cytot echno logis t and/o r Patho logis t (as indic ated in this repor t) after evalu ation using the Thinp rep Imagi ng Syste m. CLINI STEPHANIE INFOR MATIO N: Menst rual Statu s: LMP (if appli cable ): Clini stephanie Histo ry/Pr eviou s Pap: Type of Neopl lula (if appli cable ): Signi fican t Clini stephanie Findi ngs: Other Histo ry: Hormo meagan (if appli cable ): PAP EDUCA DANIEL L NOTE: The Pap Test is a scree brittany test with an inher ent false negat heidy rate. Liqui d-bas ed sampl ing may decre ase, but will not elimi alvaro, false negat heidy resul ts. A negat heidy resul t does not precl ude the prese nce and/o r devel opmen t of disea se, since the prese nce of abnor mal cells in the sampl e depen ds on the locat ion of the lesio n and sampl ing techn ique. Flora nued regul ar scree brittany is the best metho d of cance r preve ntion . If repor francisca cytol ogic findi ng do not corre late with physi stephanie and/o r histo rical findi ngs, fur er inves tigat ion is recom arpit d, as clini марина davis nted. Not Available [facility] (Lab) [address], [place], [address], 05/29/2024 14:59:59 05/27/20 20 05/27/2020 MAMMO , diagn ostic , digit al, bilat eral No observ ation record ed. [place] [id number] [facility] [address], [place], [address], 06/03/2020 13:23:16 05/28/20 20 05/27/2020 MAMMO , diagn ostic , digit al, bilat eral No observ ation record ed. [place] [id number] [facility] [address], [place], [address], 06/03/2020 13:23:16 06/03/20 22 06/03/2022 MAMMO , scree brittany, bilat eral No observ ation record ed. [facility] [address], [place], [address], 06/22/2022 10:33:06 07/05/19 24 07/05/2023 MAMMO , scree brittany, bilat eral No observ ation record ed. [facility] [address], [place], [address], 07/08/2023 14:55:30 07/06/19 24 07/05/2023 MAMMO , scree brittany, bilat eral No observ ation record ed. [email or web address] [address], [place], [address], 07/15/2023 11:42:50 07/30/19 24 07/30/2023 MAMMO , diagn ostic , unila teral No observ ation record ed. [facility] [address], [place], [address], 10/17/2024 09:46:42 10/19/19 25 10/18/2024 MAMMO , scree brittany, digit al, bilat eral No observ ation record ed. [facility] [address], [place], [address], 10/19/2024 11:45:42 Result Notes None recorded. Problems Name Problem SNOMED Code Status Onset Date Resolution Date Notes Provider Name and Address Organization Details Recorded Time Dysfunct ional uterine bleeding Completed 201102/19/2021 DUB;Teagan alta ID: 0001 Leonor Duong [facility] 15:01:58 Female genital organ symptoms [id number] Completed 201102/19/2021 Unspecif ied symptom associat ed with female genital organs;P ractice ID: 0001 Leonor Duong [facility] 15:02:03 Amenorrh ea [id number] Completed 201102/19/2021 AMENORRH EA;Pract ice ID: 0001 Leonor Duong [facility] 15:01:42 Routine antenata l care Completed 201102/19/2021 Supervis ion of other normal pregnanc y;Practi ce ID: 0001 Leonor Duong [facility] 15:02:20 Pregnanc y test positive [id number] Completed 201102/19/2021 Positive Pregnanc y Test;Pra ctice ID: 0001 Leonor Duong [facility] 15:02:17 Screenin g for malignan t neoplasm of cervix Completed 201102/19/2021 Pap Smear;Pr actice ID: 0001 Leonor Duong [facility] 15:02:22 anatomy study Completed 201102/19/2021 [facility] ANATMC SURVEY;P ractice ID: 0001 Leonor Duong [facility] 15:02:05 anatomy study Completed 201105/24/2012 [facility] ANATMC SURVEY;R ecorded Elsewher e: No Locat ion: Gelacio ayala [facility] S ource: EHR Cane Weigher Helper flaco: N Practi ce ID: 0001 Liam lable Time: 09:15:00 AM Leonor boss, [facility] 15:02:05 Maternal care for diminish ed movement s Completed 201102/19/2021 Decrease d movement s, affectin g manageme nt of mother, antepart um conditio n or complica tion;Pra ctice ID: 0001 Leonor Duong [facility] 15:02:08 Vaginiti s and vulvovag initis Completed 201102/19/2021 Vaginiti s and vulvovag initis, unspecif ied;Prac alta ID: 0001 Leonor Duong [facility] 15:02:36 Excessiv e growth affectin g manageme nt of mother [id number] Completed 201102/19/2021 GROWTH LARGE LGA;Prac alta ID: 0001 Leonor Duong [facility] 15:02:02 Pre-ecla mpsia or eclampsi a with pre-exis ting hyperten vitaly - not delivere d [id number] Completed 201102/19/2021 Pre-ecla mpsia or eclampsi a superimp osed on pre-exis ting hyperten vitaly, antepart um;Pract ice ID: 0001 Leonor Duong [facility], [facility] 15:02:16 Delivery normal [id number] Completed 201102/19/2021 Normal delivery ;Practic e ID: 0001 Leonor Duong [facility] 15:01:55 Postpart um care Completed 201102/19/2021 Routine postpart um follow-u p;Delmy ce ID: 0001 Leonor boss, [facility] 15:02:14 Speciali zed medical examinat ion Completed 201202/19/2021 Routine gynecolo gical examinat ion;Prac alta ID: 0001 Leonor boss, [facility] 15:02:31 Disorder of breast [id number] Completed 201302/19/2021 DISORDER S BREAST NEC;Prac alta ID: 0001 Leonor boss, [facility] 15:01:57 Obesity [id number] Completed 201402/19/2021 Obesity, unspecif ied;Prac alta ID: 0001 Leonor Duong [facility], [facility] 15:02:12 Ultrason ography Completed 201402/19/2021 Antenata l screenin g for malforma tion using ultrason ics;Prac alta ID: 0001 Leonor boss, [facility] 15:02:35 Antenata l screenin g Completed 201402/19/2021 Antenata l screenin g for malforma tion using ultrason ics;Prac alta ID: 0001 Lenoor boss, [facility] 15:01:44 Congenit al malforma tion [id number] Completed 201402/19/2021 Antenata l screenin g for malforma tion using ultrason ics;Prac alta ID: 0001 Leonor boss, [facility] 15:01:[address] Concept Completed 201402/19/2021 Encounte r for supervis ion of normal pregnanc y, unspecif ied, third trimeste r;Record ed Elsewher e: No Locat ion: Gelacio ayala [facility] S ource: EHR Cane Weigher Helper flaco: N Practi ce ID: 0001 Liam lable Time: 03:45:00 PM Leonor boss [facility] 15:01:47 Normal pregnanc y in multigra diana [id number] Completed 201402/19/2021 Encounte r for suprvsn of normal pregnanc y, third trimeste r;Practi ce ID: 0001 Leonor boss [facility] 15:02:11 Term pregnanc y delivere d [id number] Completed 201402/19/2021 Encounte r for full-ter m uncompli cated delivery ;Practic e ID: 0001 Leonor boss [facility] 15:02:33 Single live from singleto n pregnanc y [id number] Completed 201402/19/2021 Single live ;Pr actice ID: 0001 Leonor boss [facility] 15:02:27 Lochia finding Completed 201402/19/2021 Encounte r for routine postpart um follow-u p;Practi ce ID: 0001 Leonor boss [facility] 15:02:07 Simple obesity [id number] Completed 201502/19/2021 Other obesity due to excess calories ;Practic e ID: 0001 Leonor boss [facility] 15:02:25 Dysthymi a [id number] Completed 201502/19/2021 Other malaise; Practice ID: 0001 Leonor boss [facility] 15:02:[address] Concept Completed 201502/19/2021 Encntr for emt/paramedic exam (general ) (routine ) w/o abn findings ;Practic e ID: 0001 Leonor boss [facility] 15:02:[address] Concept Completed 201502/19/2021 Anxiety; Recorded Elsewher e: No [facility] Cane Weigher Helper flaco: N Practi ce ID: 0001 Liam lable Time: 03:30:00 PM Leonor Duong [facility] 15:02:28 Uses combined oral contrace ption [id number] Completed 201702/19/2021 Encounte r for initial prescrip tion of contrace ptive pills;Pr actice ID: 0001 Leonor Duong [facility] 15:01:49 Body mass index 30+ - obesity [id number] Completed 201702/19/2021 Body mass index (BMI) 38.0-38. 9, adult;Re corded Elsewher e: No [facility] S ource: EHR Cane Weigher Helper flaco: N Practi ce ID: 0001 Liam lable Time: 04:45:00 PM Leonor Duong [facility] 15:01:46 Secondar y oligomen orrhea [id number] Completed 201702/19/2021 Secondar y oligomen orrhea;P ractice ID: 0001 Leonor Duong [facility] 15:02:24 Contrace ption care manageme nt Completed 201702/19/2021 Encounte r for contrace ptive manageme nt, unspecif ied;Prac alta ID: 0001 Leonor Duong [facility] 15:01:54 Problem Notes None recorded. Procedures Surgical History Date Name Laterality Status Provider Name and Address Organization Details Recorded Time 07/30/19 24 Date of Last Mammogram completed [facility] 05/17/2024 09:26:33 05/11/20 23 Date of Last Pap Smear completed [facility] 05/17/2024 09:25:22 Other completed Carolin Mayser [facility] 05/11/2023 16:52:36 Tonsillectomy completed Talia Brower [facility] 02/13/2020 12:36:49 Imaging Results None recorded. Procedure Notes None recorded. Medical Equipment None Reported. Allergies No known drug allergies Medications Name Sig Start Date Stop Date Status Note LastModified by Organization Details LastModified Time Prescript ion - Prior Authoriza tion Request 02/19 completed Not Available Not Available Not Available amoxicill in 500 mg capsule TAKE 1 CAPSULE BY MOUTH THREE TIMES DAILY 03/05 completed Not Available Not Available Not Available atorvasta tin 40 mg tablet TAKE 1 TABLET BY MOUTH DAILY active Not Available Not Available No t Available azithromy ale 250 mg tablet take 2 tablet (500MG) by oral route every day for 1 day then 1 tablet (250 mg) by oral route once daily for 4 days 03/05 completed Not Available Not Available Not Available spironola ctone 100 mg tablet TAKE 1 TABLET BY MOUTH EVERY DAY active Not Available Not Available No t Available clobetaso l 0.05 % topical cream APPLY TOPICALL Y TO THE AFFECTED AREA TWICE DAILY FOR 2 WEEKS 05/17 completed Not Available Not Available Not Available phentermi ne 30 mg capsule TAKE 1 CAPSULE BY MOUTH DAILY 03/05 completed Not Available Not Available Not Available Zofran 8 mg tablet take 1 tablet (8MG) by oral route every 6 hours as needed for nausea 09/15 completed Prescrib ed Elsewher e: No [facility] By: trey Ayala ncounter DateTime : 09/15/19 12 03:30:00 PM Not Available Not Available Not Available Zoloft 50 mg tablet take 1 tablet by oral route every day 09/25 completed Prescrib ed Elsewher e: No Locat ion: [facility] M odify By: quique Ayala ncounter DateTime : 09/26/19 16 02:17:01 PM Not Available Not Available Not Available Flagyl 500 mg tablet take 4 Tablet (2000MG) by oral route every day 02/13 completed Prescrib ed Elsewher e: No Locat ion: [facility] ayala [facility] odify By: swati Haji er DateTime : 02/08/20 12 04:54:12 PM Not Available Not Available Not Available triamcino lone acetonide 0.1 % topical ointment APPLY SMALL AMOUNT TOPICALL Y TO THE AFFECTED AREA TWICE DAILY. DO NOT APPLY TO FACE 05/17 completed Not Available Not Available Not Available Aldara 5 % topical cream packet apply by topical route 5 times every week to the affected area(s) 07/28 completed Prescrib ed Elsewher e: Yes Loca tion: [facility] ayala [facility] odify By: diaz escamilla DateTime : 07/26/19 12 05:41:53 PM Not Available Not Available Not Available prednison e 50 mg tablet TAKE 1 TABLET BY MOUTH DAILY 05/17 completed Not Available Not Available Not Available frovatrip beaulieu 2.5 mg tablet 05/11 completed Not Available Not Available Not Available Wellbutri n 75 mg tablet take 1 tablet by oral route 3 times every day 05/27 completed Prescrib ed Elsewher e: Yes Loca tion: Gel[facility] ayala [facility] odify By: shilo escamilla DateTime : 10/14/19 17 03:30:00 PM Not Available Not Available Not Available mupirocin 2 % topical ointment APPLY TOPICALL Y TO THE AFFECTED AREA THREE TIMES DAILY 05/17 completed Not Available Not Available Not Available L-Lysine 500 mg capsule 07/28 completed Prescrib ed Elsewher e: Yes Loca tion: Gelacio ayala [facility] odify By: diaz escamilla DateTime : 07/26/19 12 05:41:53 PM Not Available Not Available Not Available methylpre dnisolone 4 mg tablets in a dose pack FOLLOW PACKAGE DIRECTIO NS 03/05 completed Not Available Not Available Not Available Vitamin D2 1,250 mcg (50,000 unit) capsule take 1 capsule by oral route every week 04/30 completed Prescrib ed Elsewher e: No Locat ion: [facility] ayala [facility] odify By: tiffany escamilla DateTime : 01/16/20 15 09:15:53 AM Not Available Not Available Not Available sertralin e 20 mg/mL oral concentra te take 2.5 millilit er by oral route every day and mix with 4 oz. (1/2 cup) of water, vinay khanh, lemon/li me soda, lemonade or orange juice ONLY 07/27 completed Prescrib ed Elsewher e: Yes Loca tion: Gel[facility] ayala [facility] odify By: dean Caceres r DateTime : 10/14/19 17 03:30:00 PM Not Available Not Available Not Available ondansetr on 4 mg disintegr ating tablet 05/11 completed Not Available Not Available Not Available fexofenad ine 60 mg-pseudo ephedrine ER 120 mg tablet,ex t.release ,12 hr take 1 tablet by oral route 2 times every day 04/30 completed Prescrib ed Elsewher e: Yes Loca tion: Gelacio ayala [facility] odify By: tiffany escamilla DateTime : 09/28/19 14 03:00:00 PM Not Available Not Available Not Available Topamax 15 mg sprinkle capsule take 1 capsule by oral route 2 times every day in the morning and evening 07/27 completed Prescrib ed Elsewher e: Yes Loca tion: Gelacio ayala [facility] odify By: dean Caceres r DateTime : 10/14/19 17 03:30:00 PM Not Available Not Available Not Available Vitamin 27 mg iron-0.8 mg tablet take 1 tablet by oral route every day 09/14 completed Prescrib ed Elsewher e: Yes Loca tion: Gelacio ayala [facility] odify By: trey shipmanunter DateTime : 07/28/19 12 08:30:00 AM Not Available Not Available Not Available Zn-Plus-P rotein 15 mg tablet 07/28 completed Prescrib ed Elsewher e: Yes Loca tion: Gelacio ayala [facility] odify By: diaz escamilla DateTime : 07/26/19 12 05:41:53 PM Not Available Not Available Not Available Fish Oil Concentra te 1,000 mg capsule 07/28 completed Prescrib ed Elsewher e: Yes Loca tion: Gelacio ayala [facility] odify By: diaz escamilla DateTime : 07/26/19 12 05:41:53 PM Not Available Not Available Not Available NuvaRing 0.12 mg-0.015 mg/24 hr vaginal insert 1 vaginal ring by vaginal route every month leave in place for 3 weeks, remove for 1 week 07/27 completed Prescrib ed Elsewher e: No Locat ion: [facility] ayala [facility] odify By: dean Caceres r DateTime : 07/06/19 17 01:22:12 PM Not Available Not Available Not Available Amita 0.35 mg tablet TAKE 1 TABLET BY ORAL ROUTE EVERY DAY 05/27 completed Prescrib ed Elsewher e: No Locat ion: [facility] odify By: shilo Cox ter DateTime : 10/20/19 18 04:45:00 PM Not Available Not Available Not Available Lexapro 5 mg/5 mL oral solution take 10 millilit er by oral route every day 07/27 completed Prescrib ed Elsewher e: Yes Loca tion: [facility] odify By: dean Coxte r DateTime : 10/14/19 17 03:30:00 PM Not Available Not Available Not Available moxifloxa ale 0.5 % eye drops 05/11 completed Not Available Not Available Not Available 07/10 (28) 1 mg-20 mcg (21)/75 mg (7) tablet Take 1 tablet every day by oral route. 10/15 completed Not Available Not Available Not Available Riomet 500 mg/5 mL oral solution take 10 millilit er by oral route 2 times every day with meals 05/27 completed Prescrib ed Elsewher e: Yes Loca tion: [facility] odify By: shilo Cox ter DateTime : 07/27/19 18 04:15:00 PM Not Available Not Available Not Available hydrocodo ne 7.5 mg-acetam inophen 325 mg/15 mL oral solution 05/11 completed Not Available Not Available Not Available topiramat e 50 mg tablet TAKE 1 TABLET BY MOUTH EVERY NIGHT AT BEDTIME FOR 2 WEEKS THEN INCREASE TO 2 TABLETS EVERY NIGHT AT BEDTIME 03/05 completed Not Available Not Available Not Available nitrofura ntoin monohydra te/macroc rystals 100 mg capsule TAKE 1 CAPSULE BY MOUTH EVERY 12 HOURS FOR 5 DAYS 05/11 completed Not Available Not Available Not Available eszopiclo ne 2 mg tablet TAKE 1 TABLET BY MOUTH THE NIGHT OF SLEEP STUDY 30 MINUTES BEFORE BEDTIME 05/17 completed Not Available Not Available Not Available Lipitor 02/19 completed Not Available Not Available Not Available Lovaza 1 gram capsule take 2 capsule by oral route 2 times every day 09/14 completed Prescrib ed Elsewher e: Yes [facility]: trey lebron DateTime : 07/28/19 12 08:30:00 AM Not Available Not Available Not Available dapsone 5 % topical gel 12/13 completed Prescrib ed Elsewher e: Yes Loca tion: [facility] odify By: shilo z Encoun francine DateTime : 05/27/20 18 09:30:00 AM Not Available Not Available Not Available Matt-C DHA 35 mg-1 mg-200 mg capsule TAKE ONE CAPSULE BY MOUTH EVERY DAY 10/13 completed Prescrib ed Elsewher e: No Locat ion: [facility] odify By: smcaley Encounjosiah r DateTime : 08/27/19 16 11:16:41 AM Not Available Not Available Not Available Lo Loestrin Fe 1 mg-10 mcg (24)/10 mcg (2) tablet Take 1 tablet every day by oral route. 05/11 completed Not Available Not Available Not Available Triveen-D uo DHA 29 mg-1 mg-400 mg oral pack take 2 by Oral route every day for 30 days 09/20 completed Prescrib ed Elsewher e: No Locat ion: [facility] odify By: trey shipmanuntraymond DateTime : 08/23/19 15 03:45:00 PM Not Available Not Available Not Available Lomedia 24 Fe 1 mg-20 mcg (24)/75 mg (4) tablet take 1 tablet by oral route every day 10/13 completed Prescrib ed Caity e: No [facility] By: dean owens DateTime : 11/21/19 01:34:34 PM Not Available Not Available Not Available BinaxNOW COVID-19 Ag Self Test kit TEST DIRECTED TODAY 03/05 completed Not Available Not Available Not Available Paxlovid 300 mg (150 mg x 2)-100 mg tablets in a dose pack TAKE 2 NIRMATRE LVIR TABLETS AND 1 RITONAVI R TABLET TOGETHER BY MOUTH TWICE DAILY FOR 5 DAYS 05/11 completed Not Available Not Available Not Available Vitals Date Recorded Body height Body mass index (BMI) Body weight Systolic And Diastolic Provider Name and Address Organization Details Last Updated DateTime 02/19/2021 172.72 cm 38.8 kg/m2 158603.05 g 124/78 mm[Hg] [facility] 02/19/2021 17:01:14 Date Recorded Body height Body weight Systolic And Diastolic Provider Name and Address Organization Details Last Updated DateTime 03/05/2022 172.72 cm 386739.79 g 120/80 mm[Hg] [facility] 03/05/2022 16:41:16 Date Recorded Body height Body mass index (BMI) Body weight Systolic And Diastolic Provider Name and Address Organization Details Last Updated DateTime 05/03/2020 175.26 cm 36.2 kg/m2 849244.13 g 138/79 mm[Hg] Willow Tafoya [facility] 05/03/2020 15:57:15 Date Recorded Body height Body mass index (BMI) Body weight Systolic And Diastolic Provider Name and Address Organization Details Last Updated DateTime 05/11/2023 172.72 cm 33.1 kg/m2 50244.14 g 115/79 mm[Hg] Carolin Eugene [facility] 05/11/2023 16:51:07 Date Recorded Body weight Body mass index (BMI) Body height Systolic And Diastolic Provider Name and Address Organization Details Last Updated DateTime 05/17/2024 55753.54 g 33 kg/m2 172.72 cm 124/80 mm[Hg] Anna Felix [facility] 05/17/2024 09:30:21 Social History Question Answer Notes LastModified by Organizat ion Details LastModified Time Tobacco Smoking Status Never Smoker Carolin Maysraymond boss, [facility] 05/11/2023 16:51:54 How Many Years Have You Consumed Alcohol? 20 Information not available 05/11/2023 Are You Blind Or Do You Have Difficulty Seeing? No Information n ot available 03/05/2022 What Is Your Level Of Caffeine Consumption? Occasional Information not available 03/05/2022 How Much Tobacco Do You Chew? None Information not available 05/11/2023 In The 14 Days Before Symptom Onset, Have You Had Close Contact With A Laboratory-confirm ed COVID-19 While That Case Was Ill? No Information n ot available 05/11/2023 In The 14 Days Before Symptom Onset, Have You Had Close Contact With A Person Who Is Under Investigation For COVID-19 While That Person Was Ill? No Information not available 05/11/2023 Have You Been To An Area Known To Be High Risk For COVID-19? No Information not available 05/11/2023 Are You Deaf Or Do You Have Serious Difficulty Hearing? No Information not available 03/05/2022 What Type Of Diet Are You Following? REGULAR Information n ot available 02/19/2021 What Is The Highest Grade Or Level Of School You Have Completed Or The Highest Degree You Have Received? [id number] Information not available 05/11/2023 Are There Any Guns Present In Your Home? Yes Information not available 05/11/2023 What Was The Date Of Your Most Recent Tobacco Screening? 05/03/2020 Information not available 05/11/2023 Do You Use Protection During Sex? No Information not available 05/11/2023 Do You Use Your Seat Belt Or Car Seat Routinely? Yes Information not available 03/05/2022 Do You Have Smoke And Carbon Monoxide Detectors In Your Home? Yes Information not available 03/05/2022 How Much Tobacco Do You Smoke? No Information not available 05/03/2020 Do You Use Sunscreen Routinely? No Information not available 05/11/2023 Have You Used IV Drugs? No Information not available 05/11/2023 Do You Have Difficulty Walking Or Climbing Stairs? No Information not available 05/11/2023 Sex: Unknown Functional Status Question Answer Note LastModified by Organizat ion Details LastModified Time Do you use any illicit or recreational drugs? No Information not available 03/05/2022 What is your level of alcohol consumption? Occasional [id number] Information not available 04/23/2020 Do you or have you ever used smokeless tobacco? Never used smokeless tobacco Information not available 05/11/2023 Are you able to walk independently without assistance or assistive devices? YESWOREST Information not available 03/05/2022 Are you able to care for yourself independently? 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 No Information not available 05/11/2023 Do you or have you ever used e-cigarettes or vape? Never used electronic cigarettes Information not available 05/11/2023 What is your exercise level? Occasional [id number] Information not available 04/23/2020 Mental Status Question Answer Note LastModified by Organization D etails LastModified Time Do you feel stressed (tense, restless, nervous, or anxious, or unable to sleep at night)? [id number] Information not available 03/05/2022 Family History Relationship Description Onset Age of this Age Resolved Age Notes LastModified by Organization Details LastModified Time Paternal Grandfather Diabetes mellitus [email or web address] Not available 2019 12:35:37 Paternal Grandfather Heart disease jgumber Not available 2019 12:35:49 Paternal Grandfather Seizure disorder [email or web address] Not available 2023 09:21:09 Father Diabetes mellitus [email or web address] Not available 2019 12:35:37 Paternal Grandmother Family history of breast cancer [email or web address] Not available 2023 09:21:09 Medical History Condition Response Asthma Y Breast Problem Y Gynecological History Statement/Question Response Date of Last Mammogram 07/30/2023 Flow Moderate Date of LMP 05/08/2024 On BCP's at Conception? N N Was last menstrual period normal Y STIs/STDs N HPV Vaccine N Duration of Flow (days) 5 16 Current Control Method Partner Vas ectomy Age at First Child 23 Are cycles usually normal Y Frequency of Cycle (Q days) 20 Sexually Active? Y Menses Monthly Y Age of first menstrual cycle 17 Date of Last Pap Smear 05/11/2023 Sexual Problems? N LMP Definite N Obstetrics History GPAL:G 3 P 3 0 0 3 Type Value Full Term 3 Living 3 Total 3 Past Encounters Encounter ID Performer Location Encounter Start Date Encounter Closed Date Diagnosis/Indication Diagnosis SNOMED-CT Code Diagnosis ICD10 Code Diagnosis IMO Codes Diagnosis Note [id number] Shruthi Dinero [facility] [address] [address] 02/16/2020 16:09:25 02/16/2020 17:20:18 Gynecologic examination 01931439 Z01.419 Take Calcium with Vitamin D 1200mg daily if not receiving in daily diet. It is strongly advised to have an annual flu shot and up can obtain at most pharmacies . If you have not had a TDap shot in the last 10 years you should obtain one as well. Discussed with patient & provided with informatio n regarding Gardisil vaccine to prevent the 4 strains for HPV that cause cervical cancer if under age 26. Encourage safe sexual practices, to use condoms and limit partners if not already in a monogamous relationsh ip. Do monthly self breast exams. Have mammogram yearly or every other year depending on family history. BRCA testing is now available for patients with strong genetic history of female cancer. If interested contact the office. Engage in daily exercise of low impact aerobic exercise 45-60 minutes 4-5 times weekly. Avoid tobacco and illicit drugs as well as using moderation with alcohol intake less than 1-2 8 oz beverages daily. This lifestyle behavior pattern will lead to less health conditions and longer life span. If BMI greater than 25 weight watchers or dietary consult advised. Patient received above instructio ns, and questions have been answered. If you have any questions please call or respond to this email. Patient was made aware of the patient portal and may obtain a paper copy of today's plan if desired. Contracept ion care management [id number] Z30.9 [id number] Isabel Posey, [facility] [address] [address] 05/03/2020 15:18:51 05/03/2020 16:19:44 Lump of axillary tail of right breast [id number] 40040 N63.31 [id number] Shruthi Dinero , [facility] [address] [address] 02/19/2021 16:47:14 02/24/2021 15:01:26 Gynecologic examination 30928063 Z01.419 Take Calcium with Vitamin D 1200mg daily if not receiving in daily diet. It is strongly advised to have an annual flu shot and up can obtain at most pharmacies . If you have not had a TDap shot in the last 10 years you should obtain one as well. Discussed with patient & provided with informatio n regarding Gardisil vaccine to prevent the 4 strains for HPV that cause cervical cancer if under age 26. Encourage safe sexual practices, to use condoms and limit partners if not already in a monogamous relationsh ip. Do monthly self breast exams. Have mammogram yearly or every other year depending on family history. BRCA testing is now available for patients with strong genetic history of female cancer. If interested contact the office. Engage in daily exercise of low impact aerobic exercise 45-60 minutes 4-5 times weekly. Avoid tobacco and illicit drugs as well as using moderation with alcohol intake less than 1-2 8 oz beverages daily. This lifestyle behavior pattern will lead to less health conditions and longer life span. If BMI greater than 25 weight watchers or dietary consult advised. Patient received above instructio ns, and questions have been answered. If you have any questions please call or respond to this email. Patient was made aware of the patient portal and may obtain a paper copy of today's plan if desired. Pap/hpv hx wnlDefer pap/hpvDec lined std screen Contracept ion care management 978129595 Z30.9 Happy on current ocpon Topiramate which can potentiall y decrease effectiven ess of OCP.Uses condoms as secondary method.RF sent Pain in axilla [id number] M79.629 Please call office when this area flares up.Would like to see you see day of when you have the flare up.Call & have office squeeze you into be seen with me. [id number] JUDY Horta[facility] [address] [address] 03/05/2022 16:27:04 03/06/2022 11:40:02 Gynecologic examination [id number] Z01.419 Take Calcium with Vitamin D 1200mg daily if not receiving in daily diet. It is strongly advised to have an annual flu shot and up can obtain at most pharmacies . If you have not had a TDap shot in the last 10 years you should obtain one as well. Discussed with patient & provided with informatio n regarding Gardisil vaccine to prevent the 4 strains for HPV that cause cervical cancer if under age 26. Encourage safe sexual practices, to use condoms and limit partners if not already in a monogamous relationsh ip. Do monthly self breast exams. Have mammogram yearly or every other year depending on family history. BRCA testing is now available for patients with strong genetic history of female cancer. If interested contact the office. Engage in daily exercise of low impact aerobic exercise 45-60 minutes 4-5 times weekly. Avoid tobacco and illicit drugs as well as using moderation with alcohol intake less than 1-2 8 oz beverages daily. This lifestyle behavior pattern will lead to less health conditions and longer life span. If BMI greater than 25 weight watchers or dietary consult advised. Patient received above instructio ns, and questions have been answered. If you have any questions please call or respond to this email. Patient was made aware of the patient portal and may obtain a paper copy of today's plan if desired. Pap/hpv sentSTD Screen declinedGe netic Screen discussedC olon Screen naDexa Screen naRoutine Labs PCPMammo ordered (okay to complete additional imaging if needed b/c Hx of fibrocysti c breast tissue) [facility] [id number] Z30.9 Happy On OCPRF x 1yr Screening mammography 24 486140 Z12.31 N60.19 [id number] JUAN M HortaNP-BC [facility] [address] [address] 05/11/2023 16:37:28 05/11/2023 17:44:41 Gynecologic examination [id number] Z01.419 Z11.51 Take Calcium with Vitamin D 1200mg daily if not receiving in daily diet. It is strongly advised to have an annual flu shot and up can obtain at most pharmacies . If you have not had a TDap shot in the last 10 years you should obtain one as well. Discussed with patient & provided with informatio n regarding Gardisil vaccine to prevent the 4 strains for HPV that cause cervical cancer if under age 26. Encourage safe sexual practices, to use condoms and limit partners if not already in a monogamous relationsh ip. Do monthly self breast exams. Have mammogram yearly or every other year depending on family history. BRCA testing is now available for patients with strong genetic history of female cancer. If interested contact the office. Engage in daily exercise of low impact aerobic exercise 45-60 minutes 4-5 times weekly. Avoid tobacco and illicit drugs as well as using moderation with alcohol intake less than 1-2 8 oz beverages daily. This lifestyle behavior pattern will lead to less health conditions and longer life span. If BMI greater than 25 weight watchers or dietary consult advised. Patient received above instructio ns, and questions have been answered. If you have any questions please call or respond to this email. Patient was made aware of the patient portal and may obtain a paper copy of today's plan if desired. Pap/hpv sentSTD Screen declinedGe netic Screen discussedC olon Screen naDexa Screen [facility]Rhermann [facility] UTD PCPMammo ordered Screening mammography 24 855904 Z12.31 N60.19 Asymmetric breast tissue [id number] R92.8 Dense breast tissue and usualy has to have USZoji write order if needed [id number] Robert De Anda MD [facility] [address] [address] 05/17/2024 09:21:00 05/17/2024 09:51:54 Gynecologic examination 05409043 Z01.419 Annual gynecologi stephanie exam performed. Patient will come back in a year unless there are new symptoms. Suggest Calcium with Vitamin D if not eating in diet. Patient advised to get annual flu shot. Recommend yearly physicals and perform monthly breast exams. Genetic testing is available for patients with family history of cancer. Engage in safe sexual practices, use condoms. Encouraged to have daily exercise. Avoid tobacco and illicit drugs, moderation of alcohol. If BMI greater than 25 dietary consult advised. If you have any questions please call or email. mammogram- DUE ; pt to schedule, order given colon cancer screening - n/a DEXA scan- n/a Pap smear- pap w/ HPV collected laboratory evaluation - PCP STI testing - declined Screening mammography 24 144912 Z12.31 Health Concerns Section Related Observation LastModified by Organization Detai ls LastModified Time None Recorded Concern Status LastModified by Organization Details LastModified Time None Recorded Advance Directives Directive None Recorded Payers Insurance Date Sequence Insurance Name Policy Number Policy Slaughter Covered Member ID Slaughter Member ID Guarantor Name 05/16/2024 1 [facility] [id number] Hailey Moon [place] [employer] [id number] Hailey M [place] 05/17/2024 2 [facility] [id number] Hailey [place] [id number] Hailey Moon [place] 05/17/2024 2 [facility] [id number] Hailey [place] [id number] Hailey Moon [place] Notes Date Note Type Note Provider Name and Address Organization Details Recorded Time 05/03/20 20 text/htm l ROS as noted in the HPI about 6 weeks ago noticed mass? in right axilla, tender, has not changed in size, used to see breast specialist for dense breasts, has been a longtime since last one Isabel Posey CNM [address], [place], [address], [facility] 05/03/2020 16:08:51 02/20/20 21 text/htm l Annual GYNReported by PatientGenitourinary symptomsFor menstrual cycle, patient reportsnormal menses. For urinary symptoms, patient reportsno hematuriaandno incontinence. For vulva, patient reportsno genital lesion. For vagina, patient reportsnormal vaginal discharge.Breast symptomsFor breast, patient reportsno breast pain,no breast lump, andno nipple discharge.ContraceptionFor current contraception, patient reportssatisfied with current contraceptionandoral contraceptives.Endocrine symptomsFor sexual complaints, patient reportsno sexual complaints,no pain during intercourse, andnormal libido. For menopausal symptoms, patient reportsno menopausal symptomsandnormal vaginal lubrication.Psychological symptomsFor psychological symptoms, patient reportsno depression,no anxiety, andno pmdd.Preventative measuresFor preventive measures, patient reportsencourage self breast examination,encourage regular exercise,encourage no tobacco use, andencourage regular mammograms starting age 40. Shruthi Dinero [facility] [address], [place], [address], [facility] 03/12/2021 13:55:00 03/05/20 22 text/htm l Annual GYNReported by PatientGenitourinary symptomsFor menstrual cycle, patient reportsnormal menses. For urinary symptoms, patient reportsno hematuriaandno incontinence. For vulva, patient reportsno genital lesion. For vagina, patient reportsnormal vaginal discharge.Breast symptomsFor breast, patient reportsbreast lump (hx of fibrocystic breasts more prominent right side)but reportsno breast painandno nipple discharge.ContraceptionFor current contraception, patient reportssatisfied with current contraceptionandoral contraceptives.Endocrine symptomsFor sexual complaints, patient reportsno sexual complaints,no pain during intercourse, andnormal libido. For menopausal symptoms, patient reportsno menopausal symptomsandnormal vaginal lubrication.Psychological symptomsFor psychological symptoms, patient reportsno depression,no anxiety, andno pmdd.Preventative measuresFor preventive measures, patient reportsencourage self breast examination,encourage regular exercise,encourage no tobacco use,encourage regular mammograms starting age 40,followed with yearly pap smears, andneeds to schedule mammogram. Shruthi Dinero [facility] [address], [place], [address], [facility] 03/06/2022 09:57:47 05/11/20 23 text/htm l Annual GYNReported by PatientHistoryFor history, patient reportsno gynecologic complaints.Genitourinary symptomsFor menstrual cycle, patient reportsnormal menses. For urinary symptoms, patient reportsno hematuriaandno incontinence. For vulva, patient reportsno genital lesion. For vagina, patient reportsnormal vaginal discharge.Breast symptomsFor breast, patient reportsno breast pain,no breast lump, andno nipple discharge.ContraceptionFor current contraception, patient reportssatisfied with current contraceptionandpartner had vasectomy.Endocrine symptomsFor sexual complaints, patient reportsno sexual complaints,no pain during intercourse, andnormal libido. For menopausal symptoms, patient reportsno menopausal symptomsandnormal vaginal lubrication.Psychological symptomsFor psychological symptoms, patient reportsno depression,no anxiety, andno pmdd.Preventative measuresFor preventive measures, patient reportsencourage self breast examination,encourage regular exercise,encourage no tobacco use,encourage regular mammograms starting age 40,followed with yearly pap smears, andneeds to schedule mammogram. Shruthi Dinero, [facility] [address], [place], [address], [facility] 05/11/2023 17:41:57 05/17/20 24 text/htm l Annual GYNReported by PatientGenitourinary symptomsFor menstrual cycle, patient reportsnormal menses. For urinary symptoms, patient reportsno hematuriaandno incontinence. For vulva, patient reportsno genital lesion. For vagina, patient reportsnormal vaginal discharge.Breast symptomsFor breast, patient reportsno breast pain,no breast lump, andno nipple discharge.ContraceptionFor current contraception, patient reportspartner had vasectomy.Endocrine symptomsFor sexual complaints, patient reportsno sexual complaints,no pain during intercourse, andnormal libido. For menopausal symptoms, patient reportsno menopausal symptomsandnormal vaginal lubrication.Psychological symptomsFor psychological symptoms, patient reportsno depression,no anxiety, andno pmdd.Preventative measuresFor preventive measures, patient reportsencourage self breast examination,encourage regular exercise,encourage no tobacco use,encourage regular mammograms starting age 40, andneeds to schedule mammogram. Patient presents for annual well woman exam. Patient denies concerns today. Anna boss, [facility] 05/17/2024 10:09:05 OBGyn Episode Ob Episode Information Episode Created Date Number of Fetuses Patient Bloodtype Patient rh Status Prepregnancy Weight lbs Domestic Partner Domestic Partner Phone Father Name Die Filer Status 02/20/20 21 1 CLOSED Fetus Data First Name Last Name Admitted to NICU Weight (g) Sex Living Outcome Pediatric Complications Fetus ID Race Codes Race Delivery Type [id number] Vaginal Delivery Juan Calculation Initial Juan Date Initial Exam Date Initial Exam Provider Initial Ultrasound Date Last Menstrual Period Date Ultra Sound Weeks Gestation 0 Eighteen To Twenty Week Juan Update Ultra Sound Date Fundal Height At Umbil Quickening Date Ultra Sound Latest Weeks Gestation Final Juan Confirmed By Final Juan Confirmed Date Final Juan Date Ultra Sound Latest Days Gestation 0 0 Menstrual History Last Menstrual Date Menses Monthly On Bcp Conception Prior Menses Frequency Hcg Plus Date Menarche Onset Age Delivery Information Delivery Date Delivery Type Labor Anesthesia Weeks Gestation Incision Type Labor Labor Length Hrs Delivered By Post Complications Tubal Sterilization Discharge Date Comments 2 Discharge Information Feeding Method Contraceptive Method Maternal HG B and HCT Levels Ob Episode Information Episode Created Date Number of Fetuses Patient Bloodtype Patient rh Status Prepregnancy Weight lbs Domestic Partner Domestic Partner Phone Father Name Die Filer Status 02/20/20 21 1 CLOSED Fetus Data First Name Last Name Admitted to NICU Weight (g) Sex Living Outcome Pediatric Complications Fetus ID Race Codes Race Delivery Type [id number] Vaginal Delivery Juan Calculation Initial Juan Date Initial Exam Date Initial Exam Provider Initial Ultrasound Date Last Menstrual Period Date Ultra Sound Weeks Gestation 0 Eighteen To Twenty Week Juan Update Ultra Sound Date Fundal Height At Umbil Quickening Date Ultra Sound Latest Weeks Gestation Final Juan Confirmed By Final Juan Confirmed Date Final Juan Date Ultra Sound Latest Days Gestation 0 0 Menstrual History Last Menstrual Date Menses Monthly On Bcp Conception Prior Menses Frequency Hcg Plus Date Menarche Onset Age Delivery Information Delivery Date Delivery Type Labor Anesthesia Weeks Gestation Incision Type Labor Labor Length Hrs Delivered By Post Complications Tubal Sterilization Discharge Date Comments 4 Discharge Information Feeding Method Contraceptive Method Maternal HG B and HCT Levels Ob Episode Information Episode Created Date Number of Fetuses Patient Bloodtype Patient rh Status Prepregnancy Weight lbs Domestic Partner Domestic Partner Phone Father Name Die Filer Status 02/20/20 21 1 CLOSED Fetus Data First Name Last Name Admitted to NICU Weight (g) Sex Living Outcome Pediatric Complications Fetus ID Race Codes Race Delivery Type [id number] Vaginal Delivery Juan Calculation Initial Juan Date Initial Exam Date Initial Exam Provider Initial Ultrasound Date Last Menstrual Period Date Ultra Sound Weeks Gestation 0 Eighteen To Twenty Week Juan Update Ultra Sound Date Fundal Height At Umbil Quickening Date Ultra Sound Latest Weeks Gestation Final Juan Confirmed By Final Juan Confirmed Date Final Juan Date Ultra Sound Latest Days Gestation 0 0 Menstrual History Last Menstrual Date Menses Monthly On Bcp Conception Prior Menses Frequency Hcg Plus Date Menarche Onset Age Delivery Information Delivery Date Delivery Type Labor Anesthesia Weeks Gestation Incision Type Labor Labor Length Hrs Delivered By Post Complications Tubal Sterilization Discharge Date Comments 5 Discharge Information Feeding Method Contraceptive Method Maternal HG B and HCT Levels
--- OUTSIDE RECORDS SUMMARY | 2025-05-15 17:41 | XMS_ITS | Clinical Summary ---
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 Gender Identity Not on file Sexual Orientation [...] 03/05/2025 03/05/2022 Medical Devices Implanted Type Area [facility] Psychiatrist Device Identifier Shelf Expiration Date Model / Serial / Lot Seamguard Endogia 60 Blk [id number] - [id number] Implanted:Qt y: 1 on 10/05/2022 by Ephraim Padron MD at [facility] Biological N/A: [employer] [id number] 04/05/2024 12BSGTRI 60B / / [id number] Seamguard Endogia 60 Blk [id number] - [id number] Implanted:Qt y: 1 on 10/05/2022 by Ephraim Padron MD at [facility] N/A: Stomach [employer] [id number] 04/05/2024 12BSGTRI 60B / / [id number] Seamguard Endogia 60 Prpl [id number] - [id number] Implanted:Qt y: 1 on 10/05/2022 by Ephraim Padron MD at [facility] N/A: Stom[employer] [id number] 01/18/2025 12BSGTRI 60P / / [id number] Seamguard Endogia 60 Prpl [id number] - [id number] Implanted:Qt y: 1 on 10/05/2022 by Ephraim Padron MD at [facility] N/A: [employer] [id number] 01/18/2025 12BSGTRI 60P / / [id number] Procedures Procedure Name Priority Date/Time Associated Diagnosis [...] Recommendation: Annual mammography is recommended. Dictated from [facility] Procedure Note Bre Hurt MD - 04/13/2014 [...] mammography is recommended. Dictated from [facility] Mary Conrad MD MAMMO ORDERABLES Final Result from Last 3 Months or Most Recently Relevant to Health Maintenance Insurance [employer] Advance Directives For more information, please contact: [phone] * Full Code (Latest Code Status on File) Date Activated Date Inactivated Comments 10/05/2022 11:14 AM 10/06/2022 4:21 PM * Full Code Date Activated Date Inactivated Comments 10/05/2022 10:54 AM 10/05/2022 11:14 AM Care Teams Equalizer Operator Relationship Specialty Start Date End Date Cara Stockton MD PCP - General Family Practice 04/10/14
[2025-05-15 18:37] LABS: Hematocrit 37.7 % (37.0-47.0); Hemoglobin 12.7 g/dL (12.0-15.0); Mean Corpuscular HGB Conc 33.7 g/dl (32-36); Mean Corpuscular Hemoglobin 29.9 pg (26-34); Mean Corpuscular Volume 88.7 fl (80-100); Platelet Count Result 257 k/mm3 (150-375); Red Blood Count 4.25 M/mm3 (4.2-5.4); White Blood Count 6.0 K/mm3 (4.5-10.0)
[2025-05-15 18:47] LABS: Albumin Level 4.6 g/dL (3.5-5.1); Anion Gap 8 mmol/L (4-12); Blood Urea Nitrogen 20 mg/dL (7-17); Calcium 9.1 mg/dL (8.4-10.2); Carbon Dioxide 25 mmol/L (22-30); Chloride 103 mmol/L (98-107); Estimated Glomerular Filt Rate > 60; Glucose 84 mg/dL (65-110); Potassium 4.1 mmol/L (3.4-5.0); Sodium 136 mmol/L (137-145)
[2025-05-15 18:54] LABS: Prealbumin 21.9 mg/dL (17.6-36.0)
[2025-05-15 19:05] LABS: Iron 51 ug/dL (37-170)
== END 2025-05-15 17:39 | disposition home or self-care (01) ==
LOC: ANHLAB 17:39
PROVIDERS: PCP Family Medicine; Visit Provider Surgery Plastic and Reconstructive Surgery
DX: R63.4 Abnormal weight loss (principal)
CPT/HCPCS: 36415; 80048; 82040; 83540; 84134; 85027

== ENCOUNTER 2025-05-22 15:56 | Outpatient (CLI) | payer OTHER, SELFPAY ==
--- OUTSIDE RECORDS SUMMARY | 2025-05-22 16:53 | XMS_ITS | Clinical Summary ---
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 Gender Identity Not on file Sexual Orientation [...] 03/05/2025 03/05/2022 Medical Devices Implanted Type Area Mcat Instructor Device Identifier Shelf Expiration Date Model / Serial / Lot Seamguard Endogia 60 Blk [id number] - [id number] Implanted:Qt y: 1 on 10/05/2022 by Ephraim Padron MD at [facility] Biological N/A: St[employer] [id number] 04/05/2024 12BSGTRI 60B / / [id number] Seamguard Endogia 60 Blk [id number] - [id number] Implanted:Qt y: 1 on 10/05/2022 by Ephraim Padron MD at [facility] N/A: Stom[employer] [id number] 04/05/2024 12BSGTRI 60B / / [id number] Seamguard Endogia 60 Prpl [id number] - [id number] Implanted:Qt y: 1 on 10/05/2022 by Ephraim Padron MD at [facility] N/A: Stom[employer] [id number] 01/18/2025 12BSGTRI 60P / / [id number] Seamguard Endogia 60 Prpl [id number] - [id number] Implanted:Qt y: 1 on 10/05/2022 by Ephraim Padron MD at [facility] N/A: Stom[employer] [id number] 01/18/2025 12BSGTRI 60P / / [id number] Procedures Procedure Name Priority Date/Time Associated Diagnosis [...] Recommendation: Annual mammography is recommended. Dictated from [facility] Procedure Note Bre Hurt MD [...] Advance Directives For more information, please contact: [phone] * Full Code (Latest Code Status on File) Date Activated Date Inactivated Comments 10/05/2022 11:14 AM 10/06/2022 4:21 PM * Full Code Date Activated Date Inactivated Comments 10/05/2022 10:54 AM 10/05/2022 11:14 AM Care Teams Vending Machine Collector Relationship Specialty Start Date End Date Cara Stockton MD PCP - General Family Practice 04/10/14
--- OUTSIDE RECORDS SUMMARY | 2025-05-22 16:53 | XMS_ITS | Clinical Summary ---
Author Organization [facility] Address [address] [place] [id number] Care Team Providers Care Base Ply Hand Name Role Phone Unavailable Primary Care Provider [...]
--- OUTSIDE RECORDS SUMMARY | 2025-05-22 16:53 | XMS_ITS | Data Portability ---
Author Organization [facility] Address [address] [place] [address] Care Team Providers Care Net Developer Contract Name Role Phone KEMI BHATTI Primary Care [...] a year unless there are new symptoms. [email or web address] Not available 05/17/2024 09:24:52 Plan of Treatment Reminders Order Date Submit Date Provider Last Modified By Organization Details Last Modified Time Details Appointments [facility] 2024 04:45P M ELIECER SUN NP Not available Not available Not available Lab pap, IG + HR HPV - HPV regardles s but if HPV is positive need subtyping 16,18/45 2023 024 [facility] (Lab), [address], [place], [address], 05/29/2024 14:59:59 Referral None recorded. Procedures None recorded. Surgeries None recorded. Imaging MAMMO, screening , digital, bilateral 2023 024 [facility], [address], [place], [address], 10/18/2024 18:38:33 MAMMO, screening , bilateral 2022 023 [facility], [address], [place], [address], 07/05/2023 18:46:06 US, breast, unilatera l - May perform US unilatera lly or bilateral ly if needed [address], [address] [facility] [address], [place], [address], 12/14/2023 16:05:58 MAMMO, screening , bilateral - Please provide additiona l imaging if necessary with Hx of fibrocyst ic breasts 2021 022 [facility], [address], [place], [address], 06/03/2022 19:20:42 Medication Orders Lo Loestrin Fe 1 mg-10 mcg (24)/10 mcg (2) tablet 2021 022 [facility], [address] [place] [address], [place], [address], 05/11/2023 16:54:07 Lo Loestrin Fe 1 mg-10 mcg (24)/10 mcg (2) tablet 2020 021 [facility], [address] [place] [address], [address], 05/11/2023 16:54:07 Patient TargetsNo targets recorded. Patient Instructions Encounter Date Encounter Id Patient Instructions Last Modified By Organization Details Last Modified Time 05/03/2020 [id number] imaging ordered, f/u pendning results Not available [...] mart , Trent Olmos cted: 03/05 1650 [employer] Order ing Locat ion: [place] Path[facility] log[facility] [...] as clini марина davis nted. Not Available [facility] [address] [place], [address], 03/11/2022 21:42:56 05/11/20 23 05/11/2023 IMAGE GUIDE D PAP AND HPV REGAR DLESS image guided Pap, HPV regardless of Pap result SEE RESULT S BELOW CASE REPOR T: Cytol ogy Gynec ologi stephanie Repor t Case: [id number] Autho adarsh tan Provi joan: Kwasi Zayas Colle cted: 05/11 1724 [employer] Order ing Locat ion: [place] Patho logy [...] as clini марина davis nted. 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 Not Available [facility] (Lab) [address], [place], [address], 05/29/2024 14:59:59 05/27/20 20 05/27/2020 MAMMO , diagn ostic , digit al, bilat eral No observ ation record ed. [place] [id number] [facility] [place] [address], [place], [address], 06/03/2020 13:23:16 05/28/20 20 05/27/2020 MAMMO , diagn ostic , digit al, bilat eral No observ ation record ed. [place] [id number] [facility] [place] [address], [place], [address], 06/03/2020 13:23:16 06/03/20 22 06/03/2022 MAMMO , scree brittany, bilat eral No observ ation record ed. [facility] [address], [place], [address], 06/22/2022 10:33:06 07/05/19 24 07/05/2023 MAMMO , scree brittany, bilat eral No observ ation record ed. [facility] [address], [place], [address], 07/08/2023 14:55:30 07/06/19 24 07/05/2023 MAMMO , scree brittany, bilat eral No observ ation record ed. [email or web address] [facility] [address], [place], [address], 07/15/2023 11:42:50 07/30/19 24 07/30/2023 MAMMO , diagn ostic , unila teral No observ ation record ed. [facility] [address], [place], [address], 10/17/2024 09:46:42 10/19/19 25 10/18/2024 MAMMO , scree brittany, digit al, bilat eral No observ ation record ed. [facility] [address], [place], [address], 10/19/2024 11:45:42 Result Notes None recorded. Problems Name Problem SNOMED Code Status Onset Date Resolution Date Notes Provider Name and Address Organization Details Recorded Time Dysfunct ional uterine bleeding Completed 201102/19/2021 DUB;Teagan alta ID: 0001 Leonor Duong [facility] 15:01:58 Female genital organ symptoms [id number] Completed 201102/19/2021 Unspecif ied symptom associat ed with female genital organs;P ractice ID: 0001 Leonor Duong [facility] 15:02:03 Amenorrh ea 35827153 Completed 201102/19/2021 AMENORRH EA;Pract ice ID: 0001 Leonor Duong [facility] 15:01:42 Routine antenata l care Completed 201102/19/2021 Supervis ion of other normal pregnanc y;Practi ce ID: 0001 Leonor Duong [facility] 15:02:20 Pregnanc y test positive 257196603 Completed 201102/19/2021 Positive Pregnanc y Test;Pra ctice ID: 0001 Leonor Duong [facility] 15:02:17 Screenin g for malignan t neoplasm of cervix Completed 201102/19/2021 Pap Smear;Pr actice ID: 0001 Leonor Duong [facility] 15:02:22 anatomy study Completed 201102/19/2021 [facility] SURVEY;P ractice ID: 0001 Leonor Duong [facility] 15:02:05 anatomy study Completed 201105/24/2012 [facility] SURVEY;R ecorded Elsewher e: No Locat ion: Gelacio ayala [facility] S ource: EHR Animal Cytologist flaco: N Practi ce ID: 0001 Liam lable Time: 09:15:00 AM Leonor boss, [facility] 15:02:05 Maternal care for diminish ed movement s Completed 201102/19/2021 Decrease d movement s, affectin g manageme nt of mother, antepart um conditio n or complica tion;Pra ctice ID: 0001 Leonor Duong [facility] 15:02:08 Vaginiti s and vulvovag initis Completed 201102/19/2021 Vaginiti s and vulvovag initis, unspecif ied;Prac alta ID: 0001 Leonor Duong [facility] 15:02:36 Excessiv e growth affectin g manageme nt of mother 59367139 Completed 201102/19/2021 GROWTH LARGE LGA;Prac alta ID: 0001 Leonor Duong [facility] 15:02:02 Pre-ecla mpsia or eclampsi a with pre-exis ting hyperten vitaly - not delivere d [id number] Completed 201102/19/2021 Pre-ecla mpsia or eclampsi a superimp osed on pre-exis ting hyperten vitaly, antepart um;Pract ice ID: 0001 Leonor Duong [facility], [facility] 15:02:16 Delivery normal 06856641 Completed 201102/19/2021 Normal delivery ;Practic e ID: 0001 Leonor Duong [facility] 15:01:55 Postpart um care Completed 201102/19/2021 Routine postpart um follow-u p;Delmy ce ID: 0001 Leonor boss, [facility] 15:02:14 Speciali zed medical examinat ion Completed 201202/19/2021 Routine gynecolo gical examinat ion;Prac alta ID: 0001 Leonor boss, [facility] 15:02:31 Disorder of breast 48481717 Completed 201302/19/2021 DISORDER S BREAST NEC;Prac alta ID: 0001 Leonor boss, [facility] 15:01:57 Obesity 422129882 Completed 201402/19/2021 Obesity, unspecif ied;Prac alta ID: 0001 Leonor Duong [facility], [facility] 15:02:12 Ultrason ography Completed 201402/19/2021 Antenata l screenin g for malforma tion using ultrason ics;Prac alta ID: 0001 Leonor boss, [facility] 15:02:35 Antenata l screenin g Completed 201402/19/2021 Antenata l screenin g for malforma tion using ultrason ics;Prac alta ID: 0001 Leonor boss, [facility] 15:01:44 Congenit al malforma tion [id number] Completed 201402/19/2021 Antenata l screenin g for malforma tion using ultrason ics;Prac alta ID: 0001 Leonor boss, [facility] 15:01:[address] Concept Completed 201402/19/2021 Encounte r for supervis ion of normal pregnanc y, unspecif ied, third trimeste r;Record ed Elsewher e: No Locat ion: [facility] ay[facility] S ource: EHR Animal Cytologist flaco: N Practi ce ID: 0001 Liam lable Time: 03:45:00 PM Leonor boss [facility] 15:01:47 Normal pregnanc y in multigra diana [id number] 4106 Completed 201402/19/2021 Encounte r for suprvsn of normal pregnanc y, third trimeste r;Practi ce ID: 0001 Leonor boss [facility] 15:02:11 Term pregnanc y delivere d 37467549 Completed 201402/19/2021 Encounte r for full-ter m uncompli cated delivery ;Practic e ID: 0001 Leonor boss [facility] 15:02:33 Single live from singleto n pregnanc y 500122715 Completed 201402/19/2021 Single live ;Pr actice ID: 0001 Leonor boss [facility] 15:02:27 Lochia finding Completed 201402/19/2021 Encounte r for routine postpart um follow-u p;Practi ce ID: 0001 Leonor boss [facility] 15:02:07 Simple obesity 760464584 Completed 201502/19/2021 Other obesity due to excess calories ;Practic e ID: 0001 Leonor boss [facility] 15:02:25 Dysthymi a 89805594 Completed 201502/19/2021 Other malaise; Practice ID: 0001 Leonor boss [facility] 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 15:02:[address] Concept Completed 201502/19/2021 Anxiety; Recorded Elsewher e: No [facility]: EHR Animal Cytologist flaco: N Practi ce ID: 0001 Liam lable Time: 03:30:00 PM Leonor Duong [facility] 15:02:28 Uses combined oral contrace ption 470999227 Completed 201702/19/2021 Encounte r for initial prescrip tion of contrace ptive pills;Pr actice ID: 0001 Leonor Duong [facility] 15:01:49 Body mass index 30+ - obesity 089824961 Completed 201702/19/2021 Body mass index (BMI) 38.0-38. 9, adult;Re corded Elsewher e: No [facility] S ource: EHR Animal Cytologist flaco: N Practi ce ID: 0001 Liam lable Time: 04:45:00 PM Leonor Duong [facility] 15:01:46 Secondar y oligomen orrhea 09836713 Completed 201702/19/2021 Secondar y oligomen orrhea;P ractice ID: 0001 Leonor Duong [facility] 15:02:24 Contrace ption care manageme nt Completed 201702/19/2021 Encounte r for contrace ptive manageme nt, unspecif ied;Prac alta ID: 0001 Leonor Duong [facility] 15:01:54 Problem Notes None recorded. Procedures Surgical History Date Name Laterality Status Provider Name and Address Organization Details Recorded Time 07/30/19 24 Date of Last Mammogram completed [facility] 05/17/2024 09:26:33 05/11/20 23 Date of Last Pap Smear completed [facility] 05/17/2024 09:25:22 Other completed Carolin Mayser [facility] 05/11/2023 16:52:36 Tonsillectomy completed Talia Brower [facility] 02/13/2020 12:36:49 Imaging Results None recorded. [...] Prescrib ed Elsewher e: No [facility] odify By: trey Ayala ncounter DateTime : 09/15/19 12 03:30:00 PM Not Available Not Available Not Available Zoloft 50 mg tablet take 1 tablet by oral route every day 09/25 completed Prescrib ed Elsewher e: No Locat ion: Gel[facility] M odify By: quique Ayala ncounter DateTime : 09/26/19 16 02:17:01 PM Not Available Not Available Not Available Flagyl 500 mg tablet take 4 Tablet (2000MG) by oral route every day 02/13 completed Prescrib ed Elsewher e: No Locat ion: Gelacio ayala [facility] odify By: swati Haji er DateTime : [...] Elsewher e: Yes Loca tion: Gelacio ayala [facility] odify By: diaz escamilla DateTime : 07/26/19 [...] Elsewher e: Yes Loca tion: Gelacio ayala [facility] odify By: shilo escamilla DateTime : 10/14/19 17 03:30:00 PM Not Available Not Available Not Available mupirocin 2 % topical ointment APPLY TOPICALL Y TO THE AFFECTED AREA THREE TIMES DAILY 05/17 completed Not Available Not Available Not Available L-Lysine 500 mg capsule 07/28 completed Prescrib ed Elsewher e: Yes Loca tion: Gelacio ayala [facility] odify By: diaz escamilla DateTime : 07/26/19 12 05:41:53 PM Not Available Not Available Not Available methylpre dnisolone 4 mg tablets in a dose pack FOLLOW PACKAGE DIRECTIO NS 03/05 completed Not Available Not Available Not Available Vitamin D2 1,250 mcg (50,000 unit) capsule take 1 capsule by oral route every week 04/30 completed Prescrib ed Elsewher e: No Locat ion: [facility] odify By: tiffany escamilla DateTime : 01/16/20 15 09:15:53 AM Not Available Not Available Not Available sertralin e 20 mg/mL oral concentra te take 2.5 millilit er by oral route every day and mix with 4 oz. (1/2 cup) of water, vinay khanh, lemon/li me soda, lemonade or orange juice ONLY 07/27 completed Prescrib ed Elsewher e: Yes Loca tion: Gelacio ayala [facility] odify By: dean Caceres r DateTime : [...] Elsewher e: Yes Loca tion: Gelacio ayala [facility] odify By: tiffany escamilla DateTime : 09/28/19 14 03:00:00 PM Not Available Not Available Not Available Topamax 15 mg sprinkle capsule take 1 capsule by oral route 2 times every day in the morning and evening 07/27 completed Prescrib ed Elsewher e: Yes Loca tion: Gelacio ayala [facility] odify By: dean Caceres r DateTime : 10/14/19 17 03:30:00 PM Not Available Not Available Not Available Vitamin 27 mg iron-0.8 mg tablet take 1 tablet by oral route every day 09/14 completed Prescrib ed Elsewher e: Yes Loca tion: Gelacio ayala [facility] odify By: trey shipmanunter DateTime : 07/28/19 12 08:30:00 AM Not Available Not Available Not Available Zn-Plus-P rotein 15 mg tablet 07/28 completed Prescrib ed Elsewher e: Yes Loca tion: Gelacio ayala [facility] odify By: diaz escamilla DateTime : 07/26/19 12 05:41:53 PM Not Available Not Available Not Available Fish Oil Concentra te 1,000 mg capsule 07/28 completed Prescrib ed Elsewher e: Yes Loca tion: Gelacio ayala [facility] odify By: diaz escamilla DateTime : 07/26/19 12 05:41:53 PM Not Available Not Available Not Available NuvaRing 0.12 mg-0.015 mg/24 hr vaginal insert 1 vaginal ring by vaginal route every month leave in place for 3 weeks, remove for 1 week 07/27 completed Prescrib ed Elsewher e: No Locat ion: Gelacio ayala [facility] odify By: dean Caceres r DateTime : 07/06/19 17 01:22:12 PM Not Available Not Available Not Available Amita 0.35 mg tablet TAKE 1 TABLET BY ORAL ROUTE EVERY DAY 05/27 completed Prescrib ed Elsewher e: No Locat ion: Gelacio ayala [facility] odify By: shilo Cox ter DateTime : 10/20/19 18 04:45:00 PM Not Available Not Available Not Available Lexapro 5 mg/5 mL oral solution take 10 millilit er by oral route every day 07/27 completed Prescrib ed Elsewher e: Yes Loca tion: Gelacio ayala [facility] odify By: dean Coxte r DateTime : [...] Elsewher e: Yes Loca tion: Gelacio ayala [facility] odify By: shilo Cox ter DateTime : [...] Prescrib ed Elsewher e: Yes [facility] odify By: trey lebron DateTime : 07/28/19 12 08:30:00 AM Not Available Not Available Not Available dapsone 5 % topical gel 12/13 completed Prescrib ed Elsewher e: Yes Loca tion: [facility] odify By: shilo z Encoun francine DateTime : 05/27/20 18 09:30:00 AM Not Available Not Available Not Available Matt-C DHA 35 mg-1 mg-200 mg capsule TAKE ONE CAPSULE BY MOUTH EVERY DAY 10/13 completed Prescrib ed Elsewher e: No [facility] By: smcaley Encounjosiah r DateTime [...] Prescrib ed Elsewher e: No Locat ion: [facility] odify By: trey shipmanuntraymond DateTime : 08/23/19 15 03:45:00 PM Not Available Not Available Not Available Lomedia 24 Fe 1 mg-20 mcg (24)/75 mg (4) tablet take 1 tablet by oral route every day 10/13 completed Prescrib ed Caity e: No Locat ion: [facility] M odify By: dean oewns DateTime : 11/21/19 16 01:34:34 PM Not Available Not Available Not [...] completed Not Available Not Available Not Available Zepbound 10 mg/0.5 mL subcutane ous pen injector ADMINIST ER 10 MG UNDER THE SKIN 1 TIME WEEKLY active Not Available Not Available No t Available Zepbound 5 mg/0.5 mL subcutane ous pen injector INJECT 5MG UNDER THE SKIN ONCE A WEEK FOR 4 WEEKS active Not Available Not Available No t Available Zepbound 2.5 mg/0.5 mL subcutane ous pen injector ADMINIST ER 2.5 MG UNDER THE SKIN WEEKLY FOR 4 WEEKS active Not Available Not Available No t Available Zepbound 7.5 mg/0.5 mL subcutane ous pen injector ADMINIST ER 7.5 MG UNDER THE SKIN 1 TIME WEEKLY active Not Available Not Available No t Available Vitals Date Recorded Body height Body mass index (BMI) Body weight Systolic And Diastolic Provider Name and Address Organization Details Last Updated DateTime 02/19/2021 172.72 cm 38.8 kg/m2 625161.05 g 124/78 mm[Hg] [facility] 02/19/2021 17:01:14 Date Recorded Body height Body weight Systolic And Diastolic Provider Name and Address Organization Details Last Updated DateTime 03/05/2022 172.72 cm 625807.79 g 120/80 mm[Hg] [facility] 03/05/2022 16:41:16 Date Recorded Body height Body mass index (BMI) Body weight Systolic And Diastolic Provider Name and Address Organization Details Last Updated DateTime 05/03/2020 175.26 cm 36.2 kg/m2 468404.13 g 138/79 mm[Hg] Willow Tafoya [facility] 05/03/2020 15:57:15 Date Recorded Body height Body mass index (BMI) Body weight Systolic And Diastolic Provider Name and Address Organization Details Last Updated DateTime 05/11/2023 172.72 cm 33.1 kg/m2 05793.14 g 115/79 mm[Hg] Carolin Jabier [facility] 05/11/2023 16:51:07 Date Recorded Body weight Body mass index (BMI) Body height Systolic And Diastolic Provider Name and Address Organization Details Last Updated DateTime 05/17/2024 81283.54 g 33 kg/m2 172.72 cm 124/80 mm[Hg] Anna Felix [facility] 05/17/2024 09:30:21 Social History Question Answer Notes LastModified by Organizat ion Details LastModified Time Tobacco Smoking Status Never Smoker Carolin Jabier null, [facility] 05/11/2023 16:51:54 How Many Years Have [...] Or The Highest Degree You Have Received? [id number] Information not available 05/11/2023 Are There Any [...] How Much Tobacco Do You Smoke? No [email or web address] Information not available 05/03/2020 Do You Use [...] is your level of alcohol consumption? Occasional [id number] Information not available 04/23/2020 Do you or [...] 05/11/2023 What is your exercise level? Occasional [id number] Information not available 04/23/2020 Mental Status Question Answer Note LastModified by Organization D etails LastModified Time Do you feel stressed (tense, restless, nervous, or anxious, or unable to sleep at night)? [id number] Information not available 03/05/2022 Family History Relationship Description Onset Age of this Age Resolved Age Notes LastModified by Organization Details LastModified Time Paternal Grandfather Diabetes mellitus [email or web address] Not available 2019 12:35:37 Paternal Grandfather Heart disease [email or web address] Not available 2019 12:35:49 Paternal Grandfather Seizure disorder [email or web address] Not available 2023 09:21:09 Father Diabetes mellitus [email or web address] Not available 2019 12:35:37 Paternal Grandmother Family history of breast cancer [email or web address] Not available 2023 09:21:09 Medical History Condition Response Breast Problem Y Asthma Y Gynecological History Statement/Question Response Date of [...] ICD10 Code Diagnosis IMO Codes Diagnosis Note [id number] [facility] [address] [address] 02/16/2020 16:09:25 02/16/2020 17:20:18 Gynecologic examination 77407154 Z01.419 Take Calcium with Vitamin D 1200mg [...] paper copy of today's plan if desired. [facility] ion care management 645103820 Z30.9 [id number] Isabel Posey [facility] [address],[place] [address] 05/03/2020 15:18:51 05/03/2020 16:19:44 Lump of axillary tail of right breast 5724913678 63224 N63.31 [id number] [facility] [address],[facility] [address] 02/19/2021 16:47:14 02/24/2021 15:01:26 Gynecologic examination 74294497 Z01.419 Take Calcium with Vitamin D 1200mg [...] Pap/hpv hx wnlDefer pap/hpvDec lined std screen [facility] ion care management 654378096 Z30.9 Happy on current ocpon Topiramate which can potentiall y decrease effectiven ess of OCP.Uses condoms as secondary method.RF sent Pain in axilla 536004913 M79.622 Please call office when this area flares up.Would like to see you see day of when you have the flare up.Call & have office squeeze you into be seen with me. [id number] Shruthi Dinero , [facility] [address] [address] 03/05/2022 16:27:04 03/06/2022 11:40:02 Gynecologic examination 99761495 Z01.419 Take Calcium with Vitamin D 1200mg [...] b/c Hx of fibrocysti c breast tissue) [facility] ion care management 140502298 Z30.9 Happy On OCPRF x 1yr Screening mammography 24 931029 Z12.31 N60.19 [id number] Shruthi Dinero , [facility] [address] [address] 05/11/2023 16:37:28 05/11/2023 17:44:41 Gynecologic examination 94142841 Z01.419 Z11.51 Take Calcium with Vitamin D [...] discussedC olon Screen naDexa Screen naRoutine Labs UTD PCPMammo ordered Screening mammography 24 770017 Z12.31 N60.19 Asymmetric breast tissue 802288452 R92.8 Dense breast tissue and usualy has to have USWIll write order if needed [id number] Robert De Anda MD [place] [address] [address] 05/17/2024 09:21:00 05/17/2024 09:51:54 Gynecologic examination 66666359 Z01.419 Annual gynecologi stephanie exam performed. Patient [...] STI testing - declined Screening mammography 24 985907 Z12.31 Health Concerns Section Related Observation LastModified by Organization Detai ls LastModified Time None Recorded Concern Status LastModified by Organization Details LastModified Time None Recorded Advance Directives Directive None Recorded Payers Insurance Date Sequence Insurance Name Policy Number Policy Slaughter Covered Member ID Slaughter Member ID Guarantor Name 05/21/2025 1 [facility] [id number] Hailey Marin [id number] Hailey Lopez 05/21/2025 2 [facility] [facility] [id number] Hailey Pichardo-Tania [id number] Hailey Pichardo-Tania 05/21/2025 2 [facility] [id number] Hailey Pichardo-Tania [phone] Hailey Lopez Notes Date Note Type Note Provider Name and Address Organization Details Recorded Time 05/03/20 20 text/htm l ROS as noted in the HPI about 6 weeks ago noticed mass? in right axilla, tender, has not changed in size, used to see breast specialist for dense breasts, has been a longtime since last one Isabel Posey, ISAIAS [address], [place], [address], [facility] 05/03/2020 16:08:51 02/20/20 21 text/htm l [...] andencourage regular mammograms starting age 40. Shruthi Dinero, [facility]- [address], [place], [address], [facility] 03/12/2021 13:55:00 03/05/20 22 text/htm l [...] smears, andneeds to schedule mammogram. Shruthi Dinero, [facility] [address], [place], [address], [facility] 03/06/2022 09:57:47 05/11/20 23 text/htm l [...] smears, andneeds to schedule mammogram. Shruthi Dinero [facility] [address], [place], [address], [facility] 05/11/2023 17:41:57 05/17/20 24 text/htm l [...] woman exam. Patient denies concerns today. Anna Felix [facility] 05/17/2024 10:09:05 OBGyn Episode Ob Episode Information Episode Created Date Number of Fetuses Patient Bloodtype Patient rh Status Prepregnancy Weight lbs Domestic Partner Domestic Partner Phone Father Name Roll Edge Stitcher Hand Status 02/20/20 21 1 CLOSED Fetus Data First Name Last Name Admitted to NICU Weight (g) Sex Living Outcome Pediatric Complications Fetus ID Race Codes Race Delivery Type [id number] Vaginal Delivery Juan Calculation Initial Juan Date [...] Domestic Partner Domestic Partner Phone Father Name Roll Edge Stitcher Hand Status 02/20/20 21 1 CLOSED Fetus Data First Name Last Name Admitted to NICU Weight (g) Sex Living Outcome Pediatric Complications Fetus ID Race Codes Race Delivery Type [id number] Vaginal Delivery Juan Calculation Initial Juan Date [...] Domestic Partner Domestic Partner Phone Father Name Roll Edge Stitcher Hand Status 02/20/20 21 1 CLOSED Fetus Data First Name Last Name Admitted to NICU Weight (g) Sex Living Outcome Pediatric Complications Fetus ID Race Codes Race Delivery Type [id number] Vaginal Delivery Juan Calculation Initial Juan Date [...]
--- OUTSIDE RECORDS SUMMARY | 2025-05-22 16:53 | XMS_ITS | Clinical Summary ---
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 Gender Identity Not on file Sexual Orientation Not on file Last Filed Vital Signs Vital Sign Reading Time Taken Comments Blood Pressure 137/83 07/09/2020 3:28 PM CELL ROOM SUPERVISOR Pulse 74 07/09/2020 3:28 PM CELL ROOM SUPERVISOR Temperature 36.7 C (98.1 F) 07/09/2020 3:28 PM CELL ROOM SUPERVISOR Respiratory Rate 18 07/09/2020 3:28 PM CELL ROOM SUPERVISOR Oxygen Saturation 97% 07/09/2020 3:28 PM CELL ROOM SUPERVISOR Inhaled Oxygen Concentration - - Weight 118 kg (260 lb 3.2 oz) 07/09/2020 3:28 PM CELL ROOM SUPERVISOR Height 174 cm (5' 8.5) 07/09/2020 3:28 PM CELL ROOM SUPERVISOR Body Mass Index 38.98 07/09/2020 3:28 PM CELL ROOM SUPERVISOR Plan of Treatment Not on file Insurance [facility] CHOICE PLUS [facility] HMO/PPO Address: [address] [address] Care Teams Supervisor Hot Dip Plating Relationship Specialty Start Date End Date Cara Stockton MD PCP - General Family Medicine 06/25/20
[2025-05-26 18:08] LABS: Vit. B1, Whole Blood 157.6 nmol/L (66.5-200.0)
== END 2025-05-22 15:57 | disposition home or self-care (01) ==
LOC: ANHLAB 15:59
PROVIDERS: PCP Family Medicine; Visit Provider Surgery Plastic and Reconstructive Surgery
DX: R63.4 Abnormal weight loss (principal)
CPT/HCPCS: 84425

== ENCOUNTER 2025-06-19 00:10 | Day surgery (SDC) | payer OTHER, SELFPAY ==
--- NOTE | 2025-06-11 14:08 | PC.NURSE ---
[facility] has started construction of its new state of the art ER which will open Spring 2026. With this, we anticipate parking may be a challenge for some our surgical patients and families. Parking spaces are limited but are available for all Surgical, obstetrics, and ER patients sharing this lot. If you arrive and find you are having a hard time finding a parking space, please note that we understand the challenges, please drive around the hospital and park near Hospital Entrance 1. When you enter this entrance, you can ask a volunteer to direct or take you back to the surgical waiting area to check in. We appreciate everyone?s understanding of these expected challenges while we build for your future. Report to the Outpatient Waiting Room, entrance under the green pavilion located off [address], at time 0600 on date 06/19/25. Planned Procedure Time:0730.? Time changes happen often and if your time is changed the preop area will call you the afternoon before. - You and your visitor will be asked to self-screen and do not enter if you have any COVID symptoms. Please call surgeon if you need to reschedule. - A mask is optional within the hospital at this time. Patients may have clear liquids (water, carbonated beverages, clear teas, apple juice) until 3 hours prior to surgery with a maximum of 20 ounces. 0430 - No food from midnight until time of surgery and no smoking, or chewing tobacco (or any form of nicotine). No chewing gum, candy or mints. - Infants may have breast milk until 4 hours before surgery, formula 6 hours prior to surgery. - Children will be allowed to drink immediately following surgery.? If applicable, please bring a bottle or sippy cup to assist with drinking. Juice, water, soda, and popsicles are readily available.? For infants on formula, please bring formula the day of surgery.? Pacifiers are allowed. Take only the following medications with a SIP of water on the morning of surgery: NONE DO NOT STOP ANY OF YOUR OTHER PRESCRIPTION MEDICATIONS PRIOR TO SURGERY EXCEPT THE FOLLOWING Hold all vitamins and supplements for 3 days per anesthesiologist. Medications to discontinue per physician VITAMINS AND SUPPLEMENTS Date to take last dose 06/16/25 Please no make-up, nail romansh, hairspray, perfume, deodorant, or body powder the day of surgery.? No jewelry (including any body piercings) or valuables the day of surgery, leave them at home.? Please take a shower or bath the night before, or the morning of, surgery with an antibacterial soap.? Wear comfortable, loose fitting clothing.? Children are encouraged to wear pajamas. - Jewelry must be removed prior to entering the operating room.? Rings and piercings that are not removed may be cut off. - The hospital will not accept responsibility for valuables.? - Please leave all valuables, including medications, at home the day of surgery. If you are going home after surgery, a licensed hazmat truck driver must drive you home.? - NO public transportation without another adult if you receive anesthesia. - We recommend that an adult stay with you for 24 hours following discharge. - We also recommend that you do not drive, make important decision, drink alcoholic beverages, or take any drugs that were not prescribed by your health care provider for at least 24 hours after your discharge time. For Pediatric surgeries, we recommend two adults accompany the child home. Follow any additional instructions given to you from your surgeon. Telephone instructions given to Patient- Hailey Marin and asked if any additional questions and then verbalized understanding. Patient advised to call surgeon office or pre surgery nurse liaison [phone] if any additional questions.
[2025-06-11 14:16] VITALS: BMI 24.7
[2025-06-19] VITALS (9 sets, daily range): BP systolic 101–119; BP diastolic 54–76; PULSE 84–95; RESP 12–16; TEMP 36.6–37.1; O2SAT 99–100; BMI 24.5
--- OUTSIDE RECORDS SUMMARY | 2025-06-19 00:12 | XMS_ITS | Clinical Summary ---
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 Gender Identity Not on file Sexual Orientation Not on file Last Filed Vital Signs Vital Sign Reading Time Taken Comments Blood Pressure 137/83 07/09/2020 3:28 PM SOFT WORK CIGAR MACHINE OPERATOR Pulse 74 07/09/2020 3:28 PM SOFT WORK CIGAR MACHINE OPERATOR Temperature 36.7 C (98.1 F) 07/09/2020 3:28 PM SOFT WORK CIGAR MACHINE OPERATOR Respiratory Rate 18 07/09/2020 3:28 PM SOFT WORK CIGAR MACHINE OPERATOR Oxygen Saturation 97% 07/09/2020 3:28 PM SOFT WORK CIGAR MACHINE OPERATOR Inhaled Oxygen Concentration - - Weight 118 kg (260 lb 3.2 oz) 07/09/2020 3:28 PM SOFT WORK CIGAR MACHINE OPERATOR Height 174 cm (5' 8.5) 07/09/2020 3:28 PM SOFT WORK CIGAR MACHINE OPERATOR Body Mass Index 38.98 07/09/2020 3:28 PM SOFT WORK CIGAR MACHINE OPERATOR Plan of Treatment Not on file Insurance [facility] CHOICE PLUS Care Teams Louver Mortiser Operator Relationship Specialty Start Date End Date Cara Stockton MD PCP - General Family Medicine 06/25/20
--- OUTSIDE RECORDS SUMMARY | 2025-06-19 00:12 | XMS_ITS | Clinical Summary ---
Author Organization [facility] Address [address] [place] [id number] Care Team Providers Care Milling Machine Tender Name Role Phone Unavailable Primary Care Provider [...]
--- OUTSIDE RECORDS SUMMARY | 2025-06-19 00:12 | XMS_ITS | Clinical Summary ---
Author Organization [employer] 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 Gender Identity Not on file Sexual Orientation [...] 19+ 3-dose series) 2000 HPV/Cotest (21-29) 2002 HPV/Cotest (30-65) 2011 BREAST CANCER SCREENING 2021 04/10/20 14, 10/04/2013, 08/29/2010, Additional history exists INFLUENZA VACCINE (#1) 2025 04/16/2014 CERVICAL CANCER SCREENING 03/05/2025 PAP SMEAR 03/05/2025 03/05/2022 HPV VACCINES (No Doses Required) Completed Medical Devices Implanted Type Area Home Improvement Installer Device Identifier Shelf Expiration Date Model / Serial / Lot Seamguard Endogia 60 Blk [id number] - [id number] Implanted:Qt y: 1 on 10/05/2022 by Ephraim Padron MD at [facility] Biological N/A: Stomach [employer] [id number] 04/05/2024 12BSGTRI 60B / / [id number] Seamguard Endogia 60 Blk [id number] - [id number] Implanted:Qt y: 1 on 10/05/2022 by Ephraim Padron MD at [facility] N/A: Stomach [employer] [id number] 04/05/2024 12BSGTRI 60B / / [id number] Seamguard Endogia 60 Prpl [id number] - [id number] Implanted:Qt y: 1 on 10/05/2022 by Ephraim Padron MD at [facility] [employer] N/A: Stomach [employer] [id number] 01/18/2025 12BSGTRI 60P / / [id number] Seamguard Endogia 60 Prpl [id number] - [id number] Implanted:Qt y: 1 on 10/05/2022 by Ephraim Padron MD at [facility] N/A: Stomach [employer] [id number] 01/18/2025 12BSGTRI 60P / / [id number] Procedures Procedure Name Priority Date/Time Associated Diagnosis [...] Recommendation: Annual mammography is recommended. Dictated from [facility] Procedure Note Bre Hurt MD - 04/13/2014 [...] Most Recently Relevant to Health Maintenance Insurance [employer] [facility] [employer] [id number] [facility] Address: [place] [address] [employer] Advance Directives For more information, please contact: [phone] * Full Code (Latest Code Status on File) Date Activated Date Inactivated Comments 10/05/2022 11:14 AM 10/06/2022 4:21 PM * Full Code Date Activated Date Inactivated Comments 10/05/2022 10:54 AM 10/05/2022 11:14 AM Care Teams Package Sealer Relationship Specialty Start Date End Date Cara Stockton MD PCP - General Family Practice 04/10/14
--- OUTSIDE RECORDS SUMMARY | 2025-06-19 00:13 | XMS_ITS | Data Portability ---
Author Organization [facility] Address [address] [place] [address] Care Team Providers Care Mechanical Engineering Director Name Role Phone KEMI BHATTI Primary Care [...] unless there are new symptoms. Not available 05/17/2024 09:24:52 05/24/2025 05/24/2025 Annual gynecological exam performed. Patient will come back in a year unless there are new symptoms. [email or web address] Not available 05/24/2025 17:44:05 Plan of Treatment Reminders Order Date Submit Date Provider Last Modified By Organization Details Last Modified Time Details Appointments None recorded. Lab pap, IG + HR HPV - HPV regardless but if HPV is positive need subtyping 16,18/45 2024 025 [facility] (Lab), [address] , [place], [address], 5 12:25:38 pap, IG + HR HPV - HPV regardless but if HPV is positive need subtyping 16,18/45 2023 024 [facility] (Lab), [address], [place], [address], 4 14:59:59 Referral None recorded. Procedures None recorded. Surgeries None recorded. Imaging MAMMO, screening, digital, bilateral 2024 025 [facility], [address], [place], [address], 5 04:03:55 MAMMO, screening, digital, bilateral 2023 024 [facility], [address], [place], [address], 5 18:38:33 MAMMO, screening, bilateral 2022 023 [facility], [address], [place], [address], 4 18:46:06 US, breast, unilateral - May perform US unilaterall y or bilaterally if needed [id number] [facility], [address], [place], [address], 4 16:05:58 MAMMO, screening, bilateral - Please provide additional imaging if necessary with Hx of fibrocystic breasts 2021 022 [facility], [address], [place], [address], 2 19:20:42 Medication Orders Lo Loestrin Fe 1 mg-10 mcg (24)/10 mcg (2) tablet 2021 022 [facility], [address] [place] [address], [address], 3 16:54:07 Lo Loestrin Fe 1 mg-10 mcg (24)/10 mcg (2) tablet 2020 021 [facility], [address] [place] [address], [address], 3 16:54:07 Patient TargetsNo targets recorded. Patient InstructionsNo instructions recorded. Reason for Referral None Reported. 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 FINAL DIAGN OSIS: Negat heidy for Intra epith elial Ion ugalde or Hilda sanchez (NIL) . Elect klaus garber fatemeh d by Isai bejarano, Ismael conti, CT [...] as clini марина davis nted. 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 Not Available [facility] (Lab) [address], [place], [address], 05/17/2023 12:35:47 05/17/20 24 05/17/2024 IMAGE GUIDE D PAP AND HPV REGAR DLESS image guided Pap, HPV regardless of Pap result SEE RESULT S BELOW CASE REPOR T: Cytol ogy Gynec ologi stephanie Repor t Case: [id number] Autho adarsh tan Provi joan: Amber robertson, Eliecer , ANP, MACHINE MAINTENANCE SERVICER Colle cted: 05/17 1047 Order ing Locat ion: [place] [facility] Recei fredis: 05/18 0222 First Scree n: Martha Reda ret, CT Speci men: Scree brittany Pap - [...] n or Hilda sanchez (NIL) . Elect janepedro weldon d by Martha Read ret, CT [...] as clini марина davis nted. Not Available [facility] (Lab) [address], [place], [address], 05/29/2024 14:59:59 05/24/20 25 05/24/2025 IMAGE GUIDE D PAP AND HPV REGAR DLESS image guided Pap, HPV regardless of Pap result SEE RESULT S BELOW CASE REPOR T: Cytol ogy Gynec ologi stephanie Repor t Case: [id number] Autho adarsh g Provi joan: Dermo ailyn, Eliecer , ANP, MACHINE MAINTENANCE SERVICER Colle cted: 05/24 1709 Order ing Locat ion: [place] [facility] Recei fredis: 05/25 0729 First Scree n: Shahbaz Marvin, CT Speci men: Zeenat soto Pap - Image d, Cervi x STATE MENT OF ADEQU ACY: Satis facto ry for evalu ation Trans forma tion zone compo nent absen t ----- ----- ----- ----- ----- ----- ----- ----- ----- ----- ----- ----- ----- ----- ----- ----- ----- ---- FINAL DIAGN OSIS: Negat heidy for Intra epith elial Lesio n or Hilda sanchez ([facility]) . 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 Not Available [facility] (Lab) [address], [place], [address], 05/30/2025 12:25:38 12/06/03/2022 MAMMO , scree brittany, bilat eral No observ ation record ed. [facility] [address], [place], [address], 06/22/2022 10:33:06 07/05/19 24 07/05/2023 MAMMO , scree brittany, bilat eral No observ ation record ed. [facility] [address], [place], [address], 07/08/2023 14:55:30 07/06/19 24 07/05/2023 MAMMO , scree brittany, bilat eral No observ ation record ed. [email or web address] [place] [address] Imaging [address], [place], [address], 07/15/2023 11:42:50 07/30/19 24 07/30/2023 MAMMO , diagn ostic , unila teral No observ ation record ed. [facility] [address], [place], [address], 10/17/2024 09:46:42 10/19/19 25 10/18/2024 MAMMO , scree brittany, digit al, bilat eral No observ ation record ed. [facility] [address], [place], [address], 10/19/2024 11:45:42 Result Notes None recorded. Problems Name Problem SNOMED Code Status Onset Date Resolution Date Notes Provider Name and Address Organization Details Recorded Time Dysfunct ional uterine bleeding Completed 201102/19/2021 DUB;Teagan holm ID: 0001 Leonor boss [facility] 15:01:58 Female genital organ symptoms 322089340 Completed 201102/19/2021 Unspecif ied symptom associat ed with female genital organs;Rambo pham ID: 0001 Leonor boss [facility] 15:02:03 Amenorrh ea 25504984 Completed 201102/19/2021 AMENORRH EA;Pract ice ID: 0001 Leonor boss [facility] 15:01:42 Routine antenata l care Completed 201102/19/2021 Supervis ion of other normal pregnanc y;Practi ce ID: 0001 Leonor Duong [facility] 15:02:20 Pregnanc y test positive 581612859 Completed 201102/19/2021 Positive Pregnanc y Test;Pra ctice ID: 0001 Leonor Duong [facility] 15:02:17 Screenin g for malignan t neoplasm of cervix Completed 201102/19/2021 Pap Smear;Pr actice ID: 0001 Leonor Duong [facility] 15:02:22 anatomy study Completed 201102/19/2021 COUNT INCLUDES THE [facility] ANAT SURVEY;Rambo pham ID: 0001 Leonor Duong [facility] 15:02:05 anatomy study Completed 201105/24/2012 COUNT INCLUDES THE [facility] ANAT SURVEY;R ecorded Elsewher e: No Locat ion: [facility] S ource: EHR Medicaid Analyst flaco: N Practi ce ID: 0001 Liam lable Time: 09:15:00 AM Leonor Duong [facility] 15:02:05 Maternal care for diminish ed movement s Completed 201102/19/2021 Decrease d movement s, affectin g manageme nt of mother, antepart um conditio n or complica tion;Pra ctice ID: 0001 Leonor Duong [facility] 15:02:08 Vaginiti s and vulvovag initis Completed 201102/19/2021 Vaginiti s and vulvovag initis, unspecif ied;Prac alta ID: 0001 Leonor Duong [facility] 15:02:36 Excessiv e growth affectin g manageme nt of mother 30620557 Completed 201102/19/2021 GROWTH LARGE LGA;Prac alta ID: 0001 Leonor Duong [facility] 15:02:02 Pre-ecla mpsia or eclampsi a with pre-exis ting hyperten vitaly - not delivere d [id number] Completed 201102/19/2021 Pre-ecla mpsia or eclampsi a superimp osed on pre-exis ting hyperten vitaly, antepart um;Pract ice ID: 0001 Leonor Duong [facility] 15:02:16 Delivery normal 37493476 Completed 201102/19/2021 Normal delivery ;Practic e ID: 0001 Leonor Duong [facility] 15:01:55 Postpart um care Completed 201102/19/2021 Routine postpart um follow-u p;Practi ce ID: 0001 Leonor Duong [facility] 15:02:14 Speciali zed medical examinat ion Completed 201202/19/2021 Routine gynecolo gical examinat ion;Prac alta ID: 0001 Leonor Duong [facility] 15:02:31 Disorder of breast 49007555 Completed 201302/19/2021 DISORDER S BREAST NEC;Prac alta ID: 0001 Leonor Duong [facility] 15:01:57 Obesity 395901877 Completed 201402/19/2021 Obesity, unspecif ied;Prac alta ID: 0001 Leonor boss, [facility] 15:02:12 Ultrason ography Completed 201402/19/2021 Antenata l screenin g for malforma tion using ultrason ics;Prac alta ID: 0001 Leonor boss [facility] 15:02:35 Antenata l screenin g Completed 201402/19/2021 Antenata l screenin g for malforma tion using ultrason ics;Prac alta ID: 0001 Leonor boss [facility] 15:01:44 Congenit al malforma tion 576509590 Completed 201402/19/2021 Antenata l screenin g for malforma tion using ultrason ics;Prac alta ID: 0001 Leonor boss, [facility] 15:01:[address] Concept Completed 201402/19/2021 Encounte r for supervis ion of normal pregnanc y, unspecif ied, third trimeste r;Record ed Elsewher e: No Locat ion: [facility] S ource: EHR Medicaid Analyst flaco: N Practi ce ID: 0001 Liam lable Time: 03:45:00 PM Leonor boss [facility] 15:01:47 Normal pregnanc y in multigra diana [id number] 4106 Completed 201402/19/2021 Encounte r for suprvsn of normal pregnanc y, third trimeste r;Practi ce ID: 0001 Leonor boss [facility] 15:02:11 Term pregnanc y delivere d 14678405 Completed 201402/19/2021 Encounte r for full-ter m uncompli cated delivery ;Practic e ID: 0001 Leonor boss [facility] 15:02:33 Single live from singleto n pregnanc y 091624457 Completed 201402/19/2021 Single live ;Pr actice ID: 0001 Leonor boss [facility] 15:02:27 Lochia finding Completed 201402/19/2021 Encounte r for routine postpart um follow-u p;Practi ce ID: 0001 Leonor boss [facility] 15:02:07 Simple obesity 607670362 Completed 201502/19/2021 Other obesity due to excess calories ;Practic e ID: 0001 Leonor Duong [facility] 15:02:25 Dysthymi a 10176350 Completed 201502/19/2021 Other malaise; Practice ID: 0001 Leonor boss [facility] 15:02:[address] Concept Completed 201502/19/2021 Encntr for statistician applied exam (general ) (routine ) w/o abn findings ;Practic e ID: 0001 Leonor Duong [facility] 15:02:[address] Concept Completed 201502/19/2021 Anxiety; Recorded Elsewher e: No Locat ion: [facility] ay[facility] S ource: EHR Medicaid Analyst flaco: N Practi ce ID: 0001 Liam lable Time: 03:30:00 PM Leonor boss [facility] 15:02:28 Uses combined oral contrace ption 115235271 Completed 201702/19/2021 Encounte r for initial prescrip tion of contrace ptive pills;Pr actice ID: 0001 Leonor boss [facility] 15:01:49 Body mass index 30+ - obesity 976522796 Completed 201702/19/2021 Body mass index (BMI) 38.0-38. 9, adult;Re corded Elsewher e: No Locat ion: [facility] ayala [facility] S ource: EHR Medicaid Analyst flaco: N Practi ce ID: 0001 Liam lable Time: 04:45:00 PM Leonor Duong [facility] 15:01:46 Secondar y oligomen orrhea 14290637 Completed 201702/19/2021 Secondar y oligomen orrhea;P ractice ID: 0001 Leonor Duong [facility] 15:02:24 Contrace ption care manageme nt Completed 201702/19/2021 Encounte r for contrace ptive manageme nt, unspecif ied;Prac alta ID: 0001 Leonoralexsander Duong [facility] 15:01:54 Problem Notes None recorded. Procedures Surgical History Date Name Laterality Status Provider Name and Address Organization Details Recorded Time 10/19/19 25 Date of Last Mammogram completed [facility] 05/24/2025 17:38:13 05/17/20 24 Date of Last Pap Smear completed [facility] 05/24/2025 17:37:51 Other completed Carolin Eugene [facility] 05/11/2023 16:52:36 Tonsillectomy completed Talia Brower [facility] 02/13/2020 12:36:49 Imaging Results None recorded. [...] Prescrib ed Elsewher e: No Locat ion: [facility] odify By: trey lebron DateTime : 09/15/19 12 03:30:00 PM Not Available Not Available Not Available Zoloft 50 mg tablet take 1 tablet by oral route every day 09/25 completed Prescrib ed Elsewher e: No Locat ion: [facility] odify By: quique lebron DateTime : 09/26/19 16 02:17:01 PM Not Available Not Available Not Available Flagyl 500 mg tablet take 4 Tablet (2000MG) by oral route every day 02/13 completed Prescrib ed Elsewher e: No Locat ion: [facility] odify By: omedical Encount er DateTime : 02/08/20 12 04:54:12 PM [...] ed Elsewher e: Yes Loca tion: [facility] odify By: diaz escamilla DateTime : 07/26/19 [...] Prescrib ed Elsewher e: Yes [facility] By: [email or web address] Cox ter DateTime : 10/14/19 03:30:00 PM Not Available Not Available Not Available mupirocin 2 % topical ointment APPLY TOPICALL Y TO THE AFFECTED AREA THREE TIMES DAILY 05/17 completed Not Available Not Available Not Available L-Lysine 500 mg capsule 07/28 completed Prescrib ed Elsewher e: Yes Loca tion: [facility] odify By: diaz Cox ter DateTime : 07/26/19 12 05:41:53 PM Not Available Not Available Not Available methylpre dnisolone 4 mg tablets in a dose pack FOLLOW PACKAGE DIRECTIO NS 03/05 completed Not Available Not Available Not Available Vitamin D2 1,250 mcg (50,000 unit) capsule take 1 capsule by oral route every week 04/30 completed Prescrib ed Elsewher e: No [facility] By: bcmau Cox ter DateTime : 01/16/20 15 09:15:53 AM Not Available Not Available Not Available sertralin e 20 mg/mL oral concentra te take 2.5 millilit er by oral route every day and mix with 4 oz. (1/2 cup) of water, vinay khanh, lemon/li me soda, lemonade or orange juice ONLY 07/27 completed Prescrib ed Elsewher e: Yes Loca tion: [facility] odify By: smckhanhy Morris r DateTime : 10/14/19 17 03:30:00 PM Not Available Not Available Not Available ondansetr on 4 mg disintegr ating tablet 11/21 /2023 completed Not Available Not Available Not Available fexofenad ine 60 mg-pseudo ephedrine ER 120 mg tablet,ex t.release ,12 hr take 1 tablet by oral route 2 times every day 04/30 completed Prescrib ed Elsewher e: Yes Loca tion: [facility] odify By: tiffany escamilla DateTime : 09/28/19 14 03:00:00 PM Not Available Not Available Not Available Topamax 15 mg sprinkle capsule take 1 capsule by oral route 2 times every day in the morning and evening 07/27 completed Prescrib ed Elsewher e: Yes Loca tion: [facility] ayala [facility] odify By: dean Caceres r DateTime : 10/14/19 17 03:30:00 PM Not Available Not Available Not Available Vitamin 27 mg iron-0.8 mg tablet take 1 tablet by oral route every day 09/14 completed Prescrib ed Elsewher e: Yes Loca tion: [facility] ayala [facility] odify By: trey lebron DateTime : 07/28/19 12 08:30:00 AM Not Available Not Available Not Available Zn-Plus-P rotein 15 mg tablet 07/28 completed Prescrib ed Elsewher e: Yes Loca tion: [facility] ayaal [facility] odify By: diaz escamilla DateTime : 07/26/19 12 05:41:53 PM Not Available Not Available Not Available Fish Oil Concentra te 1,000 mg capsule 07/28 completed Prescrib ed Elsewher e: Yes Loca tion: [facility] ay[facility] odify By: diaz escamilla DateTime : 07/26/19 12 05:41:53 PM Not Available Not Available Not Available NuvaRing 0.12 mg-0.015 mg/24 hr vaginal insert 1 vaginal ring by vaginal route every month leave in place for 3 weeks, remove for 1 week 07/27 completed Prescrib ed Elsewher e: No Locat ion: [facility] odify By: dean Coxte r DateTime : 07/06/19 17 01:22:12 PM Not Available Not Available Not Available Amita 0.35 mg tablet TAKE 1 TABLET BY ORAL ROUTE EVERY DAY 05/27 completed Prescrib ed Elsewher e: No Locat ion: [facility] odify By: shilo z Encoun ter DateTime : 10/20/19 18 04:45:00 PM Not Available Not Available Not Available Lexapro 5 mg/5 mL oral solution take 10 millilit er by oral route every day 07/27 completed Prescrib ed Elsewher e: Yes Loca tion: [facility] odify By: dean owens DateTime : 10/14/19 17 03:30:00 PM Not [...] ed Elsewher e: Yes Loca tion: [facility] odify By: shilo z Encoun ter DateTime : 07/27/19 18 04:15:00 PM [...] Prescrib ed Elsewher e: Yes [facility] By: trey lebron DateTime : 07/28/19 12 08:30:00 AM Not Available Not Available Not Available dapsone 5 % topical gel 12/13 completed Prescrib ed Elsewher e: Yes Loca tion: [facility] ay[facility] odify By: [email or web address] z Encoun ter DateTime : 05/27/20 18 09:30:00 AM Not Available Not Available Not Available Matt-C DHA 35 mg-1 mg-200 mg capsule TAKE ONE CAPSULE BY MOUTH EVERY DAY 10/13 completed Prescrib ed Elsewher e: No Locat ion: [facility] odify By: dean Coxte r DateTime : 08/27/19 16 11:16:41 AM Not Available Not Available Not Available Lo Loestrin Fe 1 mg-10 mcg (24)/10 mcg (2) tablet Take 1 tablet every day by oral route. 05/11 completed Not Available Not Available Not Available Khadar uo DHA 29 mg-1 mg-400 mg oral pack take 2 by Oral route every day for 30 days 09/20 completed Prescrib ed Elsewher e: No Locat ion: [facility] odify By: trey lebron DateTime : 08/23/19 15 03:45:00 PM Not Available Not Available Not Available Lomedia 24 Fe 1 mg-20 mcg (24)/75 mg (4) tablet take 1 tablet by oral route every day 10/13 completed Prescrib ed Elsewher e: No Locat ion: [facility] odify By: dean Encounte r DateTime : 11/21/19 16 01:34:34 PM Not [...] MG UNDER THE SKIN 1 TIME WEEKLY 05/24 completed Not Available Not Available Not Available Zepbound 5 mg/0.5 mL subcutane ous pen injector INJECT 5MG UNDER THE SKIN ONCE A WEEK FOR 4 WEEKS 05/24 completed Not Available Not Available Not Available Zepbound 2.5 mg/0.5 mL subcutane ous pen injector ADMINIST ER 2.5 MG UNDER THE SKIN WEEKLY FOR 4 WEEKS 05/24 completed Not Available Not Available Not Available Zepbound 7.5 mg/0.5 mL subcutane ous pen injector ADMINIST ER 7.5 MG UNDER THE SKIN 1 TIME WEEKLY 05/24 completed Not Available Not Available Not Available Vitals Date Recorded Body height Body mass index (BMI) Body weight Systolic And Diastolic Provider Name and Address Organization Details Last Updated DateTime 02/19/2021 172.72 cm 38.8 kg/m2 861217.05 g 124/78 mm[Hg] [facility] 02/19/2021 17:01:14 Date Recorded Body height Body weight Systolic And Diastolic Provider Name and Address Organization Details Last Updated DateTime 03/05/2022 172.72 cm 365316.79 g 120/80 mm[Hg] [facility] 03/05/2022 16:41:16 Date Recorded Body height Body mass index (BMI) Body weight Systolic And Diastolic Provider Name and Address Organization Details Last Updated DateTime 05/11/2023 172.72 cm 33.1 kg/m2 37317.14 g 115/79 mm[Hg] Carolin Eugene [facility] 05/11/2023 16:51:07 Date Recorded Body weight Body mass index (BMI) Body height Systolic And Diastolic Provider Name and Address Organization Details Last Updated DateTime 05/17/2024 32989.54 g 33 kg/m2 172.72 cm 124/80 mm[Hg] Anna Felix [facility] 05/17/2024 09:30:21 Date Recorded Body height Body mass index (BMI) Body weight Systolic And Diastolic Provider Name and Address Organization Details Last Updated DateTime 05/24/2025 172.72 cm 26.4 kg/m2 93065.64 g 116/74 mm[Hg] Anna Felix [facility] 05/24/2025 17:44:20 Social History Question Answer Notes LastModified by Organizat ion Details LastModified Time Tobacco Smoking Status Never Smoker Craolin Jabier boss, [facility] 05/11/2023 16:51:54 How Many Years Have [...] Or The Highest Degree You Have Received? [id number] Information not available 05/11/2023 Are There Any [...] How Much Tobacco Do You Smoke? No [email or web address] Information not available 05/03/2020 Do You Use [...] is your level of alcohol consumption? Occasional [id number] Information not available 04/23/2020 Do you or [...] 05/11/2023 What is your exercise level? Occasional [id number] Information not available 04/23/2020 Mental Status Question Answer Note LastModified by Organization D etails LastModified Time Do you feel stressed (tense, restless, nervous, or anxious, or unable to sleep at night)? [id number] Information not available 03/05/2022 Family History Relationship Description Onset Age of this Age Resolved Age Notes LastModified by Organization Details LastModified Time Paternal Grandfather Diabetes mellitus [email or web address] Not available 2019 12:35:37 Paternal Grandfather Heart disease [email or web address] Not available 2019 12:35:49 Paternal Grandfather Seizure disorder [email or web address] Not available 2024 17:35:38 Father Diabetes mellitus [email or web address] Not available 2019 12:35:37 Paternal Grandmother Family history of breast cancer [email or web address] Not available 2024 17:35:38 Medical History Condition Response Breast Problem Y Asthma Y Gynecological History Statement/Question Response Flow Moderate Date of Last Mammogram 10/18/2024 Date of LMP 05/17/2025 N On BCP's at Conception? N STIs/STDs N Was last menstrual period normal Y HPV Vaccine N Duration of Flow (days) 3 16 Current Control Method Partner Vas ectomy Age at First Child 23 Are cycles usually normal Y Date of Last Colonoscopy Frequency of Cycle (Q days) 28 Sexually Active? Y Menses Monthly Y Date of DEXA bone scan Age of first menstrual cycle 17 Date of Last Pap Smear 05/17/2024 Sexual Problems? N LMP Definite N Obstetrics History GPAL:G 3 P 3 0 0 3 Type Value Full Term 3 Living 3 Total 3 Past Encounters Encounter ID Performer Location Encounter Start Date Encounter Closed Date Diagnosis/Indication Diagnosis SNOMED-CT Code Diagnosis ICD10 Code Diagnosis IMO Codes Diagnosis Note [id number] [facility] [address] [address] 02/16/2020 16:09:25 02/16/2020 17:20:18 Gynecologic examination 20068302 Z01.419 Take Calcium with Vitamin D 1200mg [...] plan if desired. Contracept ion care management [id number] Z30.9 [id number] Isabel Posey [facility] [address] [address] 05/03/2020 15:18:51 05/03/2020 16:19:44 Lump of axillary tail of right breast [id number] N63.[id number] [facility] [address] [address] 02/19/2021 16:47:14 02/24/2021 15:01:26 Gynecologic examination [id number] Z01.419 Take Calcium with Vitamin D 1200mg [...] Pap/hpv hx wnlDefer pap/hpvDec lined [facility] [id number] Z30.9 Happy on current ocpon Topiramate which can potentiall y decrease effectiven ess of OCP.Uses condoms as secondary method.RF sent Pain in axilla [id number] M79.629 Please call office when this area flares up.Would like to see you see day of when you have the flare up.Call & have office squeeze you into be seen with me. [id number] Shruthi Dinero , [facility] [address] [address] 03/05/2022 16:27:04 03/06/2022 11:40:02 Gynecologic examination [id number] Z01.419 Take Calcium with Vitamin D 1200mg [...] b/c Hx of fibrocysti c breast tissue) Contracept ion care management [id number] Z30.9 Happy On OCPRF x 1yr Screening mammography 24 [id number] Z12.31 N60.19 [id number] [facility] [address] [address] 05/11/2023 16:37:28 05/11/2023 17:44:41 Gynecologic examination [id number] Z01.419 Z11.51 Take Calcium with Vitamin D [...] netic Screen discussedC olon Screen naDexa [facility] UTD PCPMammo ordered Screening mammography 24 [id number] Z12.31 N60.19 Asymmetric breast tissue [id number] R92.8 Dense breast tissue and usualy has to have USWIll write order if needed [id number] Robert De Anda MD [place] [address] [address] 05/17/2024 09:21:00 05/17/2024 09:51:54 Gynecologic examination [id number] Z01.419 Annual gynecologi stephanie exam performed. Patient [...] STI testing - declined Screening mammography 24 165894 Z12.31 [id number] ELIECER SUN, [facility] [address] [address] 05/24/2025 17:35:06 05/25/2025 08:42:02 Gynecologic examination [id number] Z01.419 Annual gynecologi stephanie exam performed. Patient [...] any questions please call or email. mammogram- DUE; pt to schedule, order given colon cancer screening - n/a DEXA scan- n/a Pap smear- pap w/ HPV collected laboratory evaluation - PCP STI testing - declined Screening mammography 24 [id number] Z12.31 having breast lift Jun 19 Health Concerns Section Related Observation LastModified by Organization Detai ls LastModified Time None Recorded Concern Status LastModified by Organization Details LastModified Time None Recorded Advance Directives Directive None Recorded Payers Insurance Date Sequence Insurance Name Policy Number Policy Slaughter Covered Member ID Slaughter Member ID Guarantor Name 05/23/2025 1 [facility] [id number] Hailey M Kylee Root [id number] Hailey M Dane-Root 05/21/2025 2 [facility] [id number] Hailey Bakerk-Root [id number] Hailey M Dane-Root 05/21/[address] [place] [address] [id number] Hailey Lopez [id number] Hailey Moon DaneTalon Notes Date Note Type Note Provider Name and Address Organization Details Recorded Time 02/20/20 text/htm l Annual GYNReported by PatientGenitourinary symptomsFor [...] regular mammograms starting age 40. Shruthi Dinero, [facility]- [address], [place], [address], [facility] 03/12/2021 13:55:00 03/05/20 text/htm l Annual GYNReported by PatientGenitourinary symptomsFor [...] smears, andneeds to schedule mammogram. Shruthi Dinero, [facility] [address], [place], [address], [facility] 03/06/2022 09:57:47 05/11/20 23 text/htm l [...] smears, andneeds to schedule mammogram. Shruthi Dinero, [facility] [address], [place], [address], [facility] 05/11/2023 17:41:57 05/17/20 24 text/htm l [...] woman exam. Patient denies concerns today. Anna boss [facility] 05/17/2024 10:09:05 05/24/20 25 text/htm l Annual GYNReported by PatientGenitourinary symptomsFor [...] use, andencourage regular mammograms starting age 40. Patient presents for annual well woman exam. Patient denies concerns today. Anna boss [facility] 05/24/2025 18:07:11 OBGyn Episode Ob Episode Information Episode Created Date Number of Fetuses Patient Bloodtype Patient rh Status Prepregnancy Weight lbs Domestic Partner Domestic Partner Phone Father Name Camera Technician Status 02/20/20 21 1 CLOSED Fetus Data First Name Last Name Admitted to NICU Weight (g) Sex Living Outcome Pediatric Complications Fetus ID Race Codes Race Delivery Type 50399 Vaginal Delivery Juan Calculation Initial Juan Date [...] Domestic Partner Domestic Partner Phone Father Name Camera Technician Status 02/20/20 21 1 CLOSED Fetus Data First Name Last Name Admitted to NICU Weight (g) Sex Living Outcome Pediatric Complications Fetus ID Race Codes Race Delivery Type 67061 Vaginal Delivery Juan Calculation Initial Juan Date [...] Domestic Partner Domestic Partner Phone Father Name Camera Technician Status 02/20/20 21 1 CLOSED Fetus Data First Name Last Name Admitted to NICU Weight (g) Sex Living Outcome Pediatric Complications Fetus ID Race Codes Race Delivery Type 73436 Vaginal Delivery Juan Calculation Initial Juan Date [...]
[2025-06-19] MEDS: LACTATED RINGERS 1,000 ML 30 ML IV CONT ×2 (06:35→14:55)
--- NOTE | 2025-06-19 06:53 | WPDANESEPPF ---
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 Patient Data Age: 44 Gender: F Height: 1.77 m Weight: 77.2 kg Allergies Allergy/AdvReac Type Severity Reaction Status Date / Time corn Allergy Unknown Rhinitis Verified 06/19/25 06:19 grass pollen Allergy Unknown Hives Verified 06/19/25 06:19 Home Medications ?Medication ?Instructions ?Recorded ?Confirmed ?Type cetirizine 10 mg capsule (Allergy 10 mg PO DAILY 12/17/22 06/19/25 History Relief (cetirizine)) spironolactone 100 mg tablet 100 mg PO DAILY 02/17/24 06/19/25 History atorvastatin 40 mg tablet See Rx Instructions .Route 01/31/25 06/19/25 Rx .COMPLEX #90 tabs calcium carbonate 600 mg PO DAILY 06/11/25 06/19/25 History docusate sodium 100 mg capsule 100 mg PO BID 06/11/25 06/11/25 History (Colace) ferrous sulfate 325 mg (65 mg 325 mg PO DAILY 06/11/25 06/19/25 History iron) tablet magnesium glycinate 100 mg (as 100 mg PO DAILY 06/11/25 06/19/25 History glycinate) tablet tmyridmj-dem-yjkn-FA-Ca carb-vit K 1 tablet PO DAILY 06/11/25 06/19/25 History 18 mg iron-400 mcg-500 mg tablet (Women's One Daily) vitamin B12 500 mcg-folic acid 400 1 tablet PO DAILY 06/11/25 06/19/25 History mcg tablet Laboratory Tests 06/19/25 06:18 Cotinine Negative Patient hx anesthesia problems: none Family hx anesthesia problems: none Results Review: All pre-operative results and documents have been reviewed as part of the pre-operative evaluation. [facility] Past Medical History Medical History (Updated 06/18/25 @ 16:04 by Nate Miles DO) Asthma Hyperlipidemia Rupture of plantar fascia of left foot MARICARMEN (obstructive sleep apnea) resolved with weight loss. 2023 sleep study no sleep apnea CADENA (dyspnea on exertion) Internal derangement of knee joint Knee pain, left Grief reaction with prolonged bereavement Synovial cyst of ankle and foot region Surgical History Surgical History S/P laparoscopic sleeve gastrectomy Family History Family History Father Family history of elevated blood lipids Mother Patient's mother is , Onset Age: 58 Other Diabetes mellitus Family history of arthritis Family history of hypercholesterolemia Family history of obesity Family history of skin conditions Hypertension Social History Social History (Updated 03/29/25 @ 08:54 by Talia Owens MA) Smoking status: Never smoker Alcohol intake: current Alcohol use details: once in a while Substance use: never Substance use type: does not use Lack of Transportation: No Lack of Food: Never True Current Housing: I Have Housing Concerned About Future Housing: No Difficulty Paying Gas/Electric Bills: No Difficulty Paying for Meds: No Currently Unemployed: No Education: Master's Degree or Higher Difficulty w/ Childcare or Family Care: No Anes - Eval Final PreProcedure Day of Procedure 06/19/25 06:53 Patient weight: normal Heart: regular rate and rhythm Lungs: clear to auscultation Airway: Mallampati scale class II Neurological: alert and oriented Last oral intake: >/= 8 hours ASA classification: II Emergent: no Anesthetic plan: proceed Anesthesia type and monitoring: general ETT and standard monitoring Results Review: All pre-operative results and documents have been reviewed as part of the pre-operative evaluation. Informed Consent: The patient's anesthetic plan and its attendant risks and benefits were discussed with the patient/family/POA. Questions were solicited and answers provided to the satisfaction of the patient/family/POA.
--- NOTE | 2025-06-19 07:30 | WPDHPUPDATE1 ---
History and Physical Update Update Date/Time: 06/19/25 07:30 History and Physical has been reviewed, including an updated exam of the patient. There are NO changes in the patient's condition. Risks, benefits, and alternatives have been discussed and questions answered. Patient agrees to proceed with procedure.
--- NOTE | 2025-06-19 07:31 | W.PM.PROC2 ---
Procedure Note - Detailed Date of Procedure 06/19/25 Pre-op Diagnosis Skin Laxity Breast Ptosis Post-op Diagnosis Same Procedure Performed 1. Bilateral mastopexy 2. Belt lipectomy with suction lipectomy Surgeon Audi Wallace MD Anesthesia General Findings Bilateral inverted T mastopexy Superior pedicle Tumescent: Posterior: 1,700 cc Anterior: 2,200 cc Vaser 60% Posterior: 9:53 Anterior: 8:12 Tissue removed: 3,103 grams Lipoaspirate: 1,200 cc Diastasis: 5 cm Description of Procedure They are here today for the above procedures. Previously and again today the risks, benefits, alternatives were discussed in extensive detail. I wanted them to be very realistic about the risks involved as well as expectations. We discussed aftercare and what to monitor for. I was very upfront about the risks of wound breakdown leading to loss of skin, open wounds, and need for additional procedures with permanent abdominal deformity. We discussed DVT/PE risks and management. Made sure answered all of their questions to their satisfaction today and consent was obtained. They were marked in the preoperative holding area with their verification. The patient was taken to the operating room. Anesthesia was provided by anesthesiology. A Ladd catheter was started. Posterior Placed prone on the operating room table with care taken to protect from injury. Prepped and draped in a standard sterile fashion. A surgical time-out was taken. Stab incisions were made and tumescent solution was infiltrated. Protective port sites were placed and wet laps used to protect the skin. Once adequate time was allowed for hemostasis Vaser was utilized in a fanning manner to protect from thermal injury. A 4mm evelyne cannula were utilized to complete suction lipectomy in multiple planes and passes. Suction lipectomy continued to result based on pre-operative planning, intra-operative observation, and rolling pinch test which were in full agreement. A 10 blade was used to make the upper incision and dissection was continued inferior elevating what we necessary for closure. I placed patient in slight jackknife position and excised intervening tissue. This was closed with 3 point suture with 2-0 Vicryl followed 2-0 PDO strattafix, 3-0 stratafix ,running subcuticular 4-0 Monocryl, and tissue glue. Laterally tc were placed for turning. Breast Patient was then placed supine with care taken to protect from injury. Eleven blade was utilized to make a stab incision and infiltrated with low volume tumescent solution. The breast was tailor tacked into place. Placed her in a sitting position. Verified the nipple-areolar location based on preoperative planning as well as intraoperative observations and measurements in full agreement. She was placed supine. I de-epithelialized the pedicle. I then de-epithelialized the inferior breast tissue to create an autoaugmentation flap based on intercostal photographer apprentice lithographic. I elevated medial and lateral tissue flaps as well for planned closure. The autoaugmentation flap was sutured to the chest wall with 2-0 PDS. I closed along the IMF with 2-0 Stratafix. Along the vertical with 2-0 PDS. I closed around the areola with 3-0 stratafix. 3-0 Monocryl along the vertical. 3-0 Stratafix along the IMF. I finally closed everything with running subcuticular 4-0 Monocryl and tissue glue. Brijjits were utilized for the vertical incision. Abdomen I placed the patient in a flexed position to verify the upper and lower markings would reach. I then placed supine. A thorough abdominal examination was completed. Stab incisions were made and tumescent solution infiltrated. Stab incisions were made and tumescent solution was infiltrated. Protective port sites were placed and wet laps used to protect the skin. Once adequate time was allowed for hemostasis Vaser was utilized in a fanning manner to protect from thermal injury. A 4mm evelyne cannula were utilized to complete suction lipectomy in multiple planes and passes. Suction lipectomy continued to result based on pre-operative planning, intra-operative observation, and rolling pinch test which were in full agreement. A 10 blade was used to make the upper incision. I continued dissection down to the level of fascia. Elevated just what was necessary for repair of the diastasis. I then again flexed the bed to verify the upper skin flap would reach the lower markings without tension. Once verified I placed her supine once again and a 10 blade used to make the lower incision. I elevated up to level the umbilicus and left the umbilicus intact on a well-vascularized stalk. The intervening tissue was removed. A 2 mm blunt cannula with 0.5% bupivacaine was injected deep to the fascia bilaterally. I plicated the diastasis recti using 0 PDO Stratafix barbed suture. This was in 2 separate layers using 2 separate sutures as well. The patient was flexed and starting from superior to inferior began plication using 2-0 Vicryl to obliterate all space in a standard progressive tension fashion. At the umbilicus I marked out the location of the skin and inset this with 3-0 Monocryl and 4-0 Vicryl. I continued the remainder of the plication using 2-0 Vicryl until I reached my lower planned scar line. I trimmed any excess skin of the upper flap making sure this was a tension-free closure. 15 Jaxson drain was placed. I then approximated using a 3 point suture with 2-0 Vicryl followed by 2-0 PDO Stratafix, 3-0 Stratafix ,running subcuticular 4-0 Monocryl, and tissue glue. Fluffs, surgical bra, and an abdominal binder were placed. The patient was transferred to the bed in a flexed position. Awoken and taken to the PACU without difficulty. All instrument and sponge counts were correct at the end of the case. Estimated Blood Loss 150 Drains Yes (Posterior 15 Jaxson) Packing No Pathology None sent Complications No immediate complications Condition Stable Disposition PACU
[2025-06-19] MEDS: TRANEXAMIC ACID 1,000MG/ISO100 1,000 MG/100 ML BAG 200 MG IVPB (07:35)
[2025-06-19] MEDS: SCOPOLAMINE 1 MG PATCH 1 PATCH TRANSDERM (07:36)
[2025-06-19] MEDS: ceFAZolin 2 GM in SODIUM CHLORIDE 0.9% IV 50 ML 100 ML IVPB (07:37)
[2025-06-19 07:38] LABS: BEDSIDEPREGUCG Negative (Negative)
[2025-06-19] MEDS: LACTATED RINGERS IRRIG 1,000 ML, LIDOCAINE 1% LOCAL INJ 50 ML, EPINEPHrine HCL INJ 1 MG... INFILTRATE ×2 (11:18→13:29)
[2025-06-19] MEDS: fentaNYL CITRATE INJ (*CRX) 100 MCG/2 ML VIAL 25 MCG IV PUSH ×8 (15:15→15:40)
[2025-06-19] MEDS: HYDROmorphone HCL INJ (*CRX) 1 MG/ML SYR 0.5 MG IV PUSH (16:03)
[2025-06-19] MEDS: oxyCODONE HCL (*CRX) 5 MG TAB IR PO (16:35)
== END 2025-06-19 17:40 | disposition home or self-care (01) ==
PROVIDERS: PCP Family Medicine; Visit Provider Surgery Plastic and Reconstructive Surgery
PROC: (CPT 19316; principal; 2025-06-19 07:30)
PROC: (CPT 19316; 2025-06-19 07:30)
DX: Z41.1 Encounter for cosmetic surgery (principal); N64.81 Ptosis of breast; L57.4 Cutis laxa senilis
CPT/HCPCS: 19316; 15877; 15830; 15847; 15839; 80307; J0690; A9270; J0166; J1100; J1171; J1580; J2003; J2250; J2405; J2704; J3010; J3290; J7120